=== PATIENT | female | born 1985 | race Two or more races ===

== ENCOUNTER → 2016-12-25 | Outpatient (CLI) | payer SELFPAY | LOC: MW.CHOBGYN 14:53 | PROVIDERS: ATTEND Advanced Practice Midwife | DX: Z32.00 Encounter for pregnancy test, result unknown (principal) | CPT/HCPCS: 81025 ==

== ENCOUNTER 2017-08-08 04:31 | Inpatient (IN) | payer BC ==
[2017-08-08] MEDS ORDERED: Sodium Chloride 0.9% 2.5 ML Syringe FLUSH PRN (05:39)
[2017-08-08] MEDS ORDERED: ceFAZolin 2 GM in Premix Bag 1 BAG IV ONE (05:39)
[2017-08-08] MEDS ORDERED: Sodium Chloride 0.9% 10 ML Syringe FLUSH PRN (05:39)
[2017-08-08] MEDS ORDERED: Oxytocin/0.9 % Sodium Chloride 30 UNIT/500 ML BAG IV SCH (05:45)
[2017-08-08] MEDS ORDERED: Citric Acid/Sodium Citrate Solution 30 ML Cup PO SCH (05:45)
[2017-08-08] MEDS: Lactated Ringers 1,000 ML IV SCH ×3 (06:01→07:00)
--- NOTE | 2017-08-08 06:44 | PCM.LDHP ---
L&D History of Present Illness - General Date of Service: 08/08/17 Admit Problem/Dx: Patient Status Order with Admit Dx/Problem 08/08/17 05:44 Admission Status [Patient Status] [ADT] Routine Admission Diagnosis/Problem Admission Diagnosis/Problem Source of Information: Patient History Limitations: Reports: No Limitations - History of Present Illness Improves with: Reports: None Worsens with: Reports: None Associated Symptoms: Reports: N - Related Data Allergies/Adverse Reactions: Allergies Allergy/AdvReac Type Severity Reaction Status Date / Time No Known Allergies Allergy Verified 08/08/17 05:36 Past Medical History Genitourinary History: Reports: None 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: - Infectious Disease History Infectious Disease History: Reports: Chicken Pox - Past Surgical History Female Surgical History: Reports: Section Social & Family History - Family History Family Medical History: Noncontributory - Tobacco Use Smoking Status *Q: Never Smoker Second Hand Smoke Exposure: No - Caffeine Use Caffeine Use: Reports: None - Recreational Drug Use Recreational Drug Use: No H&P Review of Systems - Review of Systems: Review Of Systems: See Below General: Reports: No Symptoms HEENT: Reports: No Symptoms Pulmonary: Reports: No Symptoms Cardiovascular: Reports: No Symptoms Gastrointestinal: Reports: No Symptoms Genitourinary: Reports: No Symptoms Musculoskeletal: Reports: No Symptoms Skin: Reports: No Symptoms Psychiatric: Reports: No Symptoms Neurological: Reports: No Symptoms Hematologic/Lymphatic: Reports: No Symptoms Immunologic: Reports: No Symptoms L&D Exam - Exam Exam: See Below - Vital Signs Weight: 81.647 kg - OB Specific Contraction Intensity: Mild Movement: Active Heart Tones: Present Presentation: Transverse - Exam General: Alert, Oriented HEENT: PERRLA, Conjunctiva Clear, EACs Clear, EOMI, Hearing Intact, Mucosa Moist & [place], Nares Patent, Normal Nasal Septum, Posterior Pharynx Clear, TMs Clear Neck: Supple, Trachea Midline Lungs: Clear to Auscultation, Normal Respiratory Effort Cardiovascular: Regular Rate, Regular Rhythm GI/Abdominal Exam: Normal Bowel Sounds, Soft, Non-Tender, No Organomegaly, No Distention, No Abnormal Bruit, No Mass, Pelvis Stable Rectal Exam: Normal Exam, Normal Rectal Tone Genitourinary: Normal external exam, Normal bimanual exam, Normal speculum exam Back Exam: Normal Inspection, Full Range of Motion Extremities: Normal Inspection, Normal Range of Motion, Non-Tender, No Pedal Edema, Normal Capillary Refill Skin: Warm, Dry, Intact Neurological: Cranial Nerves Intact, Reflexes Equal Bilateral Psychiatric: Alert, Normal Affect, Normal Mood - Patient Data Lab Results Last 24 hrs: Laboratory Results - last 24 hr 08/08/17 Range/Units 06:01 WBC 8.57 (4.0-11.0) K/uL RBC 4.21 L (4.30-5.90) M/uL Hgb 14.0 (12.0-16.0) g/dL Hct 40.1 (36.0-46.0) % MCV 95.2 (80.0-98.0) fL MCH 33.3 H (27.0-32.0) pg MCHC 34.9 (31.0-37.0) g/dL RDW Std Deviation 46.2 (28.0-62.0) fl RDW Coeff of Laura 14 (11.0-15.0) % Plt Count 224 (150-400) K/uL MPV 9.70 (7.40-12.00) fL Nucleated RBC % 0.0 /100WBC Nucleated RBCs # 0 K/uL Result Diagrams: 08/08/17 06:01 Problem List Initiated/Reviewed/Updated: Yes Orders Last 24hrs: Active Orders 24 hr Category Date Time Status Admission Status [Patient Status] [ADT] Routine ADT 08/08/17 05:44 Active Non Stress Test [RC] PER UNIT ROUTINE Care 08/08/17 05:39 Active Notify Provider Vital Signs [RC] PRN Care 08/08/17 05:40 Active Procedure Site Prep Instruct [RC] ASDIRECTED Care 08/08/17 05:39 Active Up ad Ramona [RC] ASDIRECTED Care 08/08/17 05:39 Active Verify Patient Consent Obtain [RC] ASDIRECTED Care 08/08/17 05:39 Active Vital Signs [RC] PER UNIT ROUTINE Care 08/08/17 05:39 Active TYPE AND SCREEN [BBK] Routine Lab 08/08/17 06:01 Received Citric Acid/Sodium Citrate [Bicitra Solution] Med 08/08/17 05:45 Active 30 ml PO .ONCE Lactated Ringers [Ringers, Lactated] 1,000 ml Med 08/08/17 05:45 Active IV .BOLUS Oxytocin/0.9 % Sodium Chloride [Oxytocin 30 Unit/500 ML Med 08/08/17 05:45 Active -NS] 30 unit in 500 ml IV TITRATE Sodium Chloride 0.9% [Saline Flush] Med 08/08/17 05:39 Active 10 ml FLUSH ASDIRECTED PRN Sodium Chloride 0.9% [Saline Flush] Med 08/08/17 05:39 Active 2.5 ml FLUSH ASDIRECTED PRN Peripheral IV Insertion Adult [OM.PC] Routine Oth 08/08/17 05:39 Ordered Schedule Procedure [COMM] Per Unit Routine Oth 08/08/17 05:39 Ordered Resuscitation Status Routine Resus Stat 08/08/17 05:39 Ordered Medication Orders Citric Acid/Sodium Citrate (Bicitra Solution) 30 ml PO .ONCE TERESITA Lactated Ringer's (Ringers, Lactated) 1,000 mls @ 500 mls/hr IV .BOLUS TERESITA Last Admin: 08/08/17 06:01 Dose: 999 mls/hr Oxytocin/Sodium Chloride (Oxytocin 30 Unit/500 Ml-Ns) 30 unit in 500 mls @ 250 mls/hr IV TITRATE TERESITA Sodium Chloride (Saline Flush) 10 ml FLUSH ASDIRECTED PRN PRN Reason: Keep Vein Open Sodium Chloride (Saline Flush) 2.5 ml FLUSH ASDIRECTED PRN PRN Reason: Keep Vein Open Assessment/Plan Comment:: IUP 38+3 previous C/section in active labor with SROM confirmed. Olane to reprat C.section.
[2017-08-08] MEDS ORDERED: Oxytocin 10 Units/1 ML SDV ONE (06:59)
[2017-08-08] MEDS ORDERED: Morphine PF 10 MG/10 ML SDV ONE (07:00)
--- NOTE | 2017-08-08 07:02 | PCM.PREANE ---
Preanesthetic Assessment - Anesthesia/Transfusion/Family Hx Anesthesia History: Prior Anesthesia Without Reaction Transfusion History: No Prior Transfusion(s) - Review of Systems General: No Symptoms Pulmonary: No Symptoms Cardiovascular: No Symptoms Gastrointestinal: No Symptoms Neurological: No Symptoms Other: Reports: None - Physical Assessment Height: 5 ft 3 in Weight: 81.647 kg ASA Class: 2E Mental Status: Alert & Oriented x3 Airway Class: Mallampati = 2 Dentition: Reports: Normal Dentition Thyro-Mental Finger Breadths: 3 Mouth Opening Finger Breadths: 3 ROM/Head Extension: Full Lungs: Clear to Auscultation, Normal Respiratory Effort Cardiovascular: Regular Rate, Regular Rhythm - Lab Values: Laboratory Last Values WBC 8.57 K/uL (4.0-11.0) 08/08/17 06:01 RBC 4.21 M/uL (4.30-5.90) L 08/08/17 06:01 Hgb 14.0 g/dL (12.0-16.0) 08/08/17 06:01 Hct 40.1 % (36.0-46.0) 08/08/17 06:01 MCV 95.2 fL (80.0-98.0) 08/08/17 06:01 MCH 33.3 pg (27.0-32.0) H 08/08/17 06:01 MCHC 34.9 g/dL (31.0-37.0) 08/08/17 06:01 RDW Std Deviation 46.2 fl (28.0-62.0) 08/08/17 06:01 RDW Coeff of Laura 14 % (11.0-15.0) 08/08/17 06:01 Plt Count 224 K/uL (150-400) 08/08/17 06:01 MPV 9.70 fL (7.40-12.00) 08/08/17 06:01 Nucleated RBC % 0.0 /100WBC 08/08/17 06:01 Nucleated RBCs # 0 K/uL 08/08/17 06:01 Blood Type O POSITIVE 08/08/17 06:01 Antibody Screen NEGATIVE 08/08/17 06:01 - Allergies Allergies/Adverse Reactions: Allergies Allergy/AdvReac Type Severity Reaction Status Date / Time No Known Allergies Allergy Verified 08/08/17 05:36 - Acknowledgements Anesthesia Type Planned: General Anesthesia, Spinal (with Duramorph) Pt an Appropriate Candidate for the Planned Anesthesia: Yes Alternatives and Risks of Anesthesia Discussed w Pt/Guardian: Yes Pt/Guardian Understands and Agrees with Anesthesia Plan: Yes PreAnesthesia Questionnaire HEENT History: Reports: None Cardiovascular History: Reports: None Respiratory History: Reports: None Gastrointestinal History: Reports: GERD Genitourinary History: Reports: None 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 Para: 1 LMP (Approximate): Musculoskeletal History: Reports: None Neurological History: Reports: None Psychiatric History: Reports: None Endocrine/Metabolic History: Reports: Obesity/BMI 30+ Hematologic History: Reports: None Immunologic History: Reports: None Oncologic (Cancer) History: Reports: None Dermatologic History: Reports: None - Infectious Disease History Infectious Disease History: Reports: Chicken Pox - Past Surgical History Female Surgical History: Reports: Section - SUBSTANCE USE Smoking Status *Q: Never Smoker Second Hand Smoke Exposure: No Recreational Drug Use History: No - CURRENT (IN HOUSE) MEDS Current Meds: Current Medications Citric Acid/Sodium Citrate (Bicitra Solution) 30 ml PO .ONCE TERESITA Lactated Ringer's (Ringers, Lactated) 1,000 mls @ 500 mls/hr IV .BOLUS TERESITA Last Admin: 08/08/17 06:30 Dose: 999 mls/hr Oxytocin/Sodium Chloride (Oxytocin 30 Unit/500 Ml-Ns) 30 unit in 500 mls @ 250 mls/hr IV TITRATE TERESITA Sodium Chloride (Saline Flush) 10 ml FLUSH ASDIRECTED PRN PRN Reason: Keep Vein Open Sodium Chloride (Saline Flush) 2.5 ml FLUSH ASDIRECTED PRN PRN Reason: Keep Vein Open Discontinued Medications Cefazolin Sodium/Dextrose 2 gm (/ Premix) 50 mls @ 100 mls/hr IV ONETIME ONE Stop: 08/08/17 06:08
[2017-08-08] MEDS ORDERED: Oxytocin/0.9 % Sodium Chloride 30 UNIT/500 ML BAG ONE (07:11)
[2017-08-08] MEDS ORDERED: Octyl 2-Cyanoacrylate 1 Tube ONE (07:34)
[2017-08-08] MEDS ORDERED: Ondansetron 4 MG/2 ML SDV ONE (07:50)
[2017-08-08] MEDS ORDERED: ePHEDrine 50 MG/ML SDV ONE (07:50)
[2017-08-08] MEDS ORDERED: Ondansetron 4 MG/2 ML SDV IV PRN (07:54)
[2017-08-08] MEDS ORDERED: Lanolin 100% Cream 7 GM Tube TOP PRN (07:54)
[2017-08-08] MEDS ORDERED: Bisacodyl 10 MG Supp RECTAL PRN (07:54)
[2017-08-08] MEDS ORDERED: diphenhydrAMINE 50 MG/ML SDV IVPUSH PRN ×2 (07:54→17:16)
[2017-08-08] MEDS ORDERED: Acetaminophen/oxyCODONE 325-5 MG Tab PO PRN ×2 (07:54)
--- NOTE | 2017-08-08 07:58 | PCM.OPNOTE ---
- General Post-Op/Procedure Note Date of Surgery/Procedure: 08/08/17 Operative Procedure(s): Repeat C/section Pre Op Diagnosis: IUP 38+4 Previous C/section. SROM Post-Op Diagnosis: Same Anesthesia Technique: Spinal Primary Surgeon: Ish Monique Shop Lead: Jazmin Vickers EBL in mLs: 600 Complications: None Condition: Good
[2017-08-08] MEDS ORDERED: Lactated Ringers 1,000 ML IV SCH (08:00)
[2017-08-08] MEDS: Ketorolac 30 MG/ML SDV IVPUSH SCH ×3 (08:30→20:32)
--- NOTE | 2017-08-08 08:40 | PCM.POSTAN ---
POST ANESTHESIA ASSESSMENT - MENTAL STATUS Mental Status: Alert, Oriented - RESPIRATORY Respiratory Status: Respiratory Rate WNL, Airway Patent, O2 Saturation Stable - CARDIOVASCULAR CV Status: Pulse Rate WNL, Blood Pressure Stable - GASTROINTESTINAL GI Status: No Symptoms - PAIN Pain Score: 0 - POST OP HYDRATION Hydration Status: Adequate & Stable
--- NOTE | 2017-08-08 09:37 | OR ---
SURGEON: Ish Monique MD DATE OF PROCEDURE: PREOPERATIVE DIAGNOSES: Intrauterine 38 plus 4, previous section, early labor, spontaneous rupture of the membrane. POSTOPERATIVE DIAGNOSES: Intrauterine 38 plus 4, previous section, early labor, spontaneous rupture of the membrane. OPERATION PERFORMED: Repeat low transverse section. 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 ANESTHESIA: Spinal by Nicky Martinez. ESTIMATED BLOOD LOSS: 600 mL. COMPLICATIONS: None. FINDINGS: Female fetus, score reported to be 8 and 9. The weight is not available. Normal uterus, tubes, and ovaries. INDICATIONS: The patient is 32-year-old. She is followed in our clinic. She had a previous section. She is scheduled for elective repeat section next week. She is 38 plus 4. She presented to Labor and Delivery early this morning, in early labor with spontaneous rupture of the membrane. Decision made to repeat her section today. PROCEDURE IN DETAIL: The patient was brought to the OR, properly identified, and after adequate level of spinal anesthesia, a time-out was taken and a Coon catheter in the bladder. The patient was prepped and draped in sterile fashion as usual. Low-transverse Pfannenstiel skin incision was done. Lior's fascia and rectus fascia were opened in direction of the incision. The 2 recti muscles were . The peritoneal cavity was entered. Bladder flap was raised in the usual manner pushing the bladder away from the lower uterine segment. Low-transverse uterine incision extended manually and fetus was in a vertex position and delivered without any problem, cried immediately. score reported to be 8 and 9 and weight is not available. The placenta delivered spontaneous, complete, and intact, and repair of the lower uterine segment was done with 2-0 Vicryl continuous interlocking in 2 layers. Reperitonealization done with 3-0 Vicryl continuous and then the peritoneal cavity evacuated completely from all blood and blood clot and closed with 3-0 Vicryl continuous. The rectus fascia was closed with #1 PDS double strand and the Lior's fascia with 3-0 Vicryl continuous, and the skin closed with 3-0 Vicryl on a Alli needle in a subcuticular fashion. Instrument and sponge count were correct. The patient tolerated the procedure well, went to recovery room in stable general condition. JEYSON / ANY /[id number]
[2017-08-08] MEDS ORDERED: Naloxone 0.4 MG/ML Syringe IVPUSH PRN (17:16)
[2017-08-08] MEDS ORDERED: Nalbuphine 10 MG/1 ML Vial IVPUSH PRN (17:16)
[2017-08-08] MEDS ORDERED: fentaNYL 100 MCG/2 ML SDV IVPUSH PRN (17:18)
[2017-08-08] MEDS: Docusate Sodium 100 MG Cap PO SCH (23:17)
[2017-08-09] MEDS: Ketorolac 30 MG/ML SDV IVPUSH SCH ×2 (02:44→09:07)
--- NOTE | 2017-08-09 07:57 | PCM.PNPP ---
- General Info Date of Service: 08/09/17 Admission Dx/Problem (Free Text): Patient Status Order with Admit Dx/Problem 08/08/17 05:44 Admission Status [Patient Status] [ADT] Routine Admission Diagnosis/Problem Admission Diagnosis/Problem Functional Status: Reports: Pain Controlled, Tolerating Diet, Ambulating, Urinating - Review of Systems General: Reports: No Symptoms HEENT: Reports: No Symptoms Pulmonary: Reports: No Symptoms Cardiovascular: Reports: No Symptoms Gastrointestinal: Reports: No Symptoms Genitourinary: Reports: No Symptoms Musculoskeletal: Reports: No Symptoms Skin: Reports: No Symptoms Neurological: Reports: No Symptoms Psychiatric: Reports: No Symptoms - Patient Data Vital Signs - Most Recent: Last Vital Signs Temp 36.6 C 08/09/17 04:00 Pulse 67 08/09/17 04:00 Resp 17 08/09/17 07:00 BP 96/58 L 08/09/17 04:00 Pulse Ox 95 08/09/17 07:00 Weight - Most Recent: 81.647 kg I&O - Last 24 Hours: Intake & Output 08/08/17 08/09/17 08/09/17 22:59 06:59 14:59 Intake Total 3350 Output Total 3200 Balance 150 Lab Results - Last 24 Hours: Laboratory Results - last 24 hr 08/09/17 Range/Units 05:46 Hgb 11.7 L (12.0-16.0) g/dL Hct 34.6 L (36.0-46.0) % Med Orders - Current: Current Medications Bisacodyl (Dulcolax) 10 mg RECTAL .ONCE PRN PRN Reason: Constipation Citric Acid/Sodium Citrate (Bicitra Solution) 30 ml PO .ONCE TERESITA Diphenhydramine HCl (Benadryl) 25 mg IVPUSH Q6H PRN PRN Reason: Itching or Nausea Diphenhydramine HCl (Benadryl) 25 mg IVPUSH Q4H PRN PRN Reason: Itching Stop: 08/09/17 17:17 Docusate Sodium (Colace) 100 mg PO BID TERESITA Last Admin: 08/08/17 23:17 Dose: Not Given Emollient Ointment (Lansinoh Hpa) 0 gm TOP ASDIRECTED PRN PRN Reason: Sore Nipples Lactated Ringer's (Ringers, Lactated) 1,000 mls @ 500 mls/hr IV .BOLUS [facility] Last Admin: 08/08/17 07:00 Dose: 999 mls/hr Oxytocin/Sodium Chloride (Oxytocin 30 Unit/500 Ml-Ns) 30 unit in 500 mls @ 250 mls/hr IV TITRATE [facility] Lactated Ringer's (Ringers, Lactated) 1,000 mls @ 125 mls/hr IV ASDIRECTED [facility] Last Admin: 08/08/17 14:54 Dose: 125 mls/hr Ibuprofen (Motrin) 800 mg PO Q8H PRN PRN Reason: mild pain or fever Ketorolac Tromethamine (Toradol) 30 mg IVPUSH Q6H [facility] Stop: 08/09/17 08:01 Last Admin: 08/09/17 02:44 Dose: 30 mg Nalbuphine HCl (Nubain) 5 mg IVPUSH Q3H PRN PRN Reason: Pruritis Stop: 08/09/17 17:17 Naloxone HCl (Narcan) 0.1 mg IVPUSH ONETIME PRN PRN Reason: Respiratory Depression Stop: 08/09/17 17:17 Ondansetron HCl (Zofran) 4 mg IV Q4H PRN PRN Reason: Nausea/Vomiting Oxycodone/Acetaminophen (Percocet 325-5 Mg) 1 tab PO Q4H PRN PRN Reason: Pain (moderate 4-6) Oxycodone/Acetaminophen (Percocet 325-5 Mg) 2 tab PO Q4H PRN PRN Reason: Pain (moderate 4-6) Sodium Chloride (Saline Flush) 10 ml FLUSH ASDIRECTED PRN PRN Reason: Keep Vein Open Sodium Chloride (Saline Flush) 2.5 ml FLUSH ASDIRECTED PRN PRN Reason: Keep Vein Open Discontinued Medications Ephedrine Sulfate (Ephedrine Sulfate) Confirm Administered Dose 50 mg .ROUTE .STK-MED ONE Stop: 08/08/17 07:51 Fentanyl (Sublimaze) 50 mcg IVPUSH Q45M PRN PRN Reason: Pain (severe 7-10) Stop: 08/09/17 07:30 Cefazolin Sodium/Dextrose 2 gm (/ Premix) 50 mls @ 100 mls/hr IV ONETIME ONE Stop: 08/08/17 06:08 Oxytocin/Sodium Chloride (Oxytocin 30 Unit/500 Ml-Ns) Confirm Administered Dose 30 unit in 500 mls @ as directed .ROUTE .STK-MED ONE Stop: 08/08/17 07:12 Morphine Sulfate (Duramorph Pf) Confirm Administered Dose 10 mg .ROUTE .STK-MED ONE Stop: 08/08/17 07:01 Octyl Cyanoacrylate (Dermabond Advance) Confirm Administered Dose 1 applic .ROUTE .STK-MED ONE Stop: 08/08/17 07:35 Ondansetron HCl (Zofran) Confirm Administered Dose 4 mg .ROUTE .STK-MED ONE Stop: 08/08/17 07:51 Oxytocin (Pitocin) Confirm Administered Dose 40 unit .ROUTE .STK-MED ONE Stop: 08/08/17 07:00 - Interaction Infant Disposition, : Niland at Bedside Interaction: Holding Infant Feeding: Breastfed Infant; Nursed Well Support Person: - Recovery Exam Fundal Tone: Firm Fundal Level: 1 Fingerbreadths Below Umbilicus Fundal Placement: Midline Lochia Amount: Scant Lochia Color: Rubra/Red Perineum Description: Intact, Minimal Bruising/Swelling Episiotomy/Laceration: None Bladder Status: Indwelling Catheter in Place Urinary Elimination: Indwelling Catheter - Exam General: Alert, Oriented, Cooperative, No Acute Distress Lungs: Clear to Auscultation, Normal Respiratory Effort Cardiovascular: Regular Rate, Regular Rhythm, No Murmurs GI/Abdominal Exam: Soft, Non-Tender Extremities: Normal Range of Motion, Non-Tender, No Pedal Edema, Normal Capillary Refill Skin: Warm, Dry, Intact Wound/Incisions: Healing Well, Dressing Dry and Intact, No Drainage Neurological: No New Focal Deficit, Normal Gait, Normal Speech, Normal Tone Psy/Mental Status: Alert, Normal Affect, Normal Mood - Problem List & Annotations (1) Status post delivery SNOMED Code(s): 075176708 Code(s): Z98.891 - HISTORY OF UTERINE SCAR FROM PREVIOUS SURGERY Status: Acute Priority: High Current Visit: Yes - Problem List Review Problem List Initiated/Reviewed/Updated: Yes - Plan Plan:: IUP 38+3 previous C/section in active labor with SROM confirmed. Olane to reprat C.section.
[2017-08-09] MEDS: Docusate Sodium 100 MG Cap PO SCH ×4 (09:07→21:03)
--- NOTE | 2017-08-09 09:37 | PCM.SURGPN ---
- General Info Date of Service: 08/09/17 POD#: 1 Functional Status: Reports: Pain Controlled - Review of Systems General: Reports: No Symptoms HEENT: Reports: No Symptoms Pulmonary: Reports: No Symptoms Cardiovascular: Reports: No Symptoms Gastrointestinal: Reports: No Symptoms Genitourinary: Reports: No Symptoms Musculoskeletal: Reports: No Symptoms Skin: Reports: No Symptoms Neurological: Reports: No Symptoms Psychiatric: Reports: No Symptoms - Patient Data Vitals - Most Recent: Last Vital Signs Temp 36.4 C 08/09/17 08:00 Pulse 86 08/09/17 08:00 Resp 16 08/09/17 08:00 BP 94/53 L 08/09/17 08:00 Pulse Ox 98 08/09/17 08:00 Weight - Most Recent: 81.647 kg I&O - Last 24 Hours: Intake & Output 08/08/17 08/09/17 08/09/17 22:59 06:59 14:59 Intake Total 3350 Output Total 3200 Balance 150 Lab Results Last 24 Hrs: Laboratory Results - last 24 hr 08/09/17 Range/Units 05:46 Hgb 11.7 L (12.0-16.0) g/dL Hct 34.6 L (36.0-46.0) % Med Orders - Current: Current Medications Bisacodyl (Dulcolax) 10 mg RECTAL .ONCE PRN PRN Reason: Constipation Citric Acid/Sodium Citrate (Bicitra Solution) 30 ml PO .ONCE [facility]ES[facility] Diphenhydramine HCl (Benadryl) 25 mg IVPUSH Q6H PRN PRN Reason: Itching or Nausea Diphenhydramine HCl (Benadryl) 25 mg IVPUSH Q4H PRN PRN Reason: Itching Stop: 08/09/17 17:17 Docusate Sodium (Colace) 100 mg PO BID [facility] Last Admin: 08/09/17 09:12 Dose: Not Given Emollient Ointment (Lansinoh Hpa) 0 gm TOP ASDIRECTED PRN PRN Reason: Sore Nipples Lactated Ringer's (Ringers, Lactated) 1,000 mls @ 500 mls/hr IV .BOLUS [facility] Last Admin: 08/08/17 07:00 Dose: 999 mls/hr Oxytocin/Sodium Chloride (Oxytocin 30 Unit/500 Ml-Ns) 30 unit in 500 mls @ 250 mls/hr IV TITRATE [facility] Lactated Ringer's (Ringers, Lactated) 1,000 mls @ 125 mls/hr IV ASDIRECTED [facility] Last Admin: 08/08/17 14:54 Dose: 125 mls/hr Ibuprofen (Motrin) 800 mg PO Q8H PRN PRN Reason: mild pain or fever Nalbuphine HCl (Nubain) 5 mg IVPUSH Q3H PRN PRN Reason: Pruritis Stop: 08/09/17 17:17 Naloxone HCl (Narcan) 0.1 mg IVPUSH ONETIME PRN PRN Reason: Respiratory Depression Stop: 08/09/17 17:17 Ondansetron HCl (Zofran) 4 mg IV Q4H PRN PRN Reason: Nausea/Vomiting Oxycodone/Acetaminophen (Percocet 325-5 Mg) 1 tab PO Q4H PRN PRN Reason: Pain (moderate 4-6) Oxycodone/Acetaminophen (Percocet 325-5 Mg) 2 tab PO Q4H PRN PRN Reason: Pain (moderate 4-6) Sodium Chloride (Saline Flush) 10 ml FLUSH ASDIRECTED PRN PRN Reason: Keep Vein Open Sodium Chloride (Saline Flush) 2.5 ml FLUSH ASDIRECTED PRN PRN Reason: Keep Vein Open Discontinued Medications Ephedrine Sulfate (Ephedrine Sulfate) Confirm Administered Dose 50 mg .ROUTE .STK-MED ONE Stop: 08/08/17 07:51 Fentanyl (Sublimaze) 50 mcg IVPUSH Q45M PRN PRN Reason: Pain (severe 7-10) Stop: 08/09/17 07:30 Cefazolin Sodium/Dextrose 2 gm (/ Premix) 50 mls @ 100 mls/hr IV ONETIME ONE Stop: 08/08/17 06:08 Oxytocin/Sodium Chloride (Oxytocin 30 Unit/500 Ml-Ns) Confirm Administered Dose 30 unit in 500 mls @ as directed .ROUTE .STK-MED ONE Stop: 08/08/17 07:12 Ketorolac Tromethamine (Toradol) 30 mg IVPUSH Q6H [facility] Stop: 08/09/17 08:01 Last Admin: 08/09/17 09:07 Dose: 30 mg Morphine Sulfate (Duramorph Pf) Confirm Administered Dose 10 mg .ROUTE .STK-MED ONE Stop: 08/08/17 07:01 Octyl Cyanoacrylate (Dermabond Advance) Confirm Administered Dose 1 applic .ROUTE .STK-MED ONE Stop: 08/08/17 07:35 Ondansetron HCl (Zofran) Confirm Administered Dose 4 mg .ROUTE .STK-MED ONE Stop: 08/08/17 07:51 Oxytocin (Pitocin) Confirm Administered Dose 40 unit .ROUTE .STK-MED ONE Stop: 08/08/17 07:00 - Exam Wound/Incisions: Healing Well General: Alert, Oriented HEENT: Pupils Equal Neck: Supple Lungs: Clear to Auscultation, Normal Respiratory Effort Cardiovascular: Regular Rate, Regular Rhythm GI/Abdominal Exam: Normal Bowel Sounds, Soft, Non-Tender, No Organomegaly, No Distention, No Abnormal Bruit, No Mass, Pelvis Stable Extremities: Normal Inspection, Normal Range of Motion, Non-Tender, No Pedal Edema, Normal Capillary Refill Skin: Warm, Dry, Intact Neurological: No New Focal Deficit Psy/Mental Status: Alert, Normal Affect, Normal Mood - Problem List Review Problem List Initiated/Reviewed/Updated: Yes - My Orders Last 24 Hours: Active Orders 24 hr Category Date Time Status Bradycardia-Neuroaxis [employer] [RC] ROUTINE Care 08/08/17 17:17 Active Hypertension-Neuroaxis [employer] [RC] ROUTINE Care 08/08/17 17:17 Active Hypotension-Neuroaxis [employer] [RC] ROUTINE Care 08/08/17 17:17 Active Oxygen Therapy [RC] PER UNIT ROUTINE Care 08/08/17 17:17 Active Regular Diet [DIET] Diet 08/08/17 Lunch Active Docusate Sodium [Colace] Med 08/08/17 09:00 Active 100 mg PO BID Nalbuphine [Nubain] Med 08/08/17 17:16 Active 5 mg IVPUSH Q3H PRN Naloxone [Narcan] Med 08/08/17 17:16 Active 0.1 mg IVPUSH ONETIME PRN diphenhydrAMINE [Benadryl] Med 08/08/17 17:16 Active 25 mg IVPUSH Q4H PRN AN Neuroaxis Duramorph Precaution Reflex [OM.PC] PER Oth 08/09/17 07:30 Ordered UNIT ROUTINE Medication Orders Bisacodyl (Dulcolax) 10 mg RECTAL .ONCE PRN PRN Reason: Constipation Citric Acid/Sodium Citrate (Bicitra Solution) 30 ml PO .ONCE [facility] Diphenhydramine HCl (Benadryl) 25 mg IVPUSH Q6H PRN PRN Reason: Itching or Nausea Diphenhydramine HCl (Benadryl) 25 mg IVPUSH Q4H PRN PRN Reason: Itching Stop: 08/09/17 17:17 Docusate Sodium (Colace) 100 mg PO BID [facility] Last Admin: 08/09/17 09:12 Dose: Not Given Admin: 08/09/17 09:07 Dose: 100 mg Admin: 08/08/17 23:17 Dose: Not Given Emollient Ointment (Lansinoh Hpa) 0 gm TOP ASDIRECTED PRN PRN Reason: Sore Nipples Lactated Ringer's (Ringers, Lactated) 1,000 mls @ 500 mls/hr IV .BOLUS [facility] Last Admin: 08/08/17 07:00 Dose: 999 mls/hr Infusion: 08/08/17 07:00 Dose: 999 mls/hr Admin: 08/08/17 06:30 Dose: 999 mls/hr Infusion: 08/08/17 06:30 Dose: 999 mls/hr Admin: 08/08/17 06:01 Dose: 999 mls/hr Oxytocin/Sodium Chloride (Oxytocin 30 Unit/500 Ml-Ns) 30 unit in 500 mls @ 250 mls/hr IV TITRATE [facility] Lactated Ringer's (Ringers, Lactated) 1,000 mls @ 125 mls/hr IV ASDIRECTED [facility] Last Admin: 08/08/17 14:54 Dose: 125 mls/hr Ibuprofen (Motrin) 800 mg PO Q8H PRN PRN Reason: mild pain or fever Nalbuphine HCl (Nubain) 5 mg IVPUSH Q3H PRN PRN Reason: Pruritis Stop: 08/09/17 17:17 Naloxone HCl (Narcan) 0.1 mg IVPUSH ONETIME PRN PRN Reason: Respiratory Depression Stop: 08/09/17 17:17 Ondansetron HCl (Zofran) 4 mg IV Q4H PRN PRN Reason: Nausea/Vomiting Oxycodone/Acetaminophen (Percocet 325-5 Mg) 1 tab PO Q4H PRN PRN Reason: Pain (moderate 4-6) Oxycodone/Acetaminophen (Percocet 325-5 Mg) 2 tab PO Q4H PRN PRN Reason: Pain (moderate 4-6) Sodium Chloride (Saline Flush) 10 ml FLUSH ASDIRECTED PRN PRN Reason: Keep Vein Open Sodium Chloride (Saline Flush) 2.5 ml FLUSH ASDIRECTED PRN PRN Reason: Keep Vein Open - Assessment Assessment (Free Text/Narrative):: Status post section postoperative day #1 the patient have no complaint or symptom and incision is clean dry she is ambulatory on regular diet and voiding without any problem the patient would be discharged home in a.m.
[2017-08-09] MEDS: Ibuprofen 800 MG Tab PO PRN (21:03)
--- NOTE | 2017-08-10 08:15 | PCM.DCSUM1 ---
Discharge Summary - Hospital Course Free Text/Narrative:: Discharge home with . Follow up 10 days for incision check and 6 weeks for post visit. - Discharge Data Discharge Date: 08/10/17 Discharge Disposition: Home, Self-Care 01 Condition: Good - Discharge Diagnosis/Problem(s) (1) Status post delivery SNOMED Code(s): 097440934 ICD Code: Z98.891 - HISTORY OF UTERINE SCAR FROM PREVIOUS SURGERY Status: Acute Priority: High Current Visit: Yes - Patient Summary/Data Operative Procedure(s) Performed: Repeat C/section - Patient Instructions Diet: Usual Diet as Tolerated Activity: As Tolerated, No Strenuous Activities, Rest and Relax Today Driving: May Drive Today Showering/Bathing: December Shower Wound/Incision Care: Keep Operative Site/Wound Site Clean and Dry Notify Provider of: Fever, Increased Pain, Swelling and Redness, Drainage, Nausea and/or Vomiting Other/Special Instructions: Discharge home with infant. Follow up 10 days for incision check and 6 weeks for post visit. - Discharge Plan Referrals: [facility] [Outside] Jazmin Vickers CNM [Mid-] - (1 week- August 21 @ 8:30am w/ Dr. Monique 6 week- September 19 @ 10:30am w/ Jazmin Vickers) - General Info Date of Service: 08/10/17 Admission Dx/Problem (Free Text: Patient Status Order with Admit Dx/Problem 08/08/17 05:44 Admission Status [Patient Status] [ADT] Routine Admission Diagnosis/Problem Admission Diagnosis/Problem Functional Status: Reports: Pain Controlled, Tolerating Diet, Ambulating, Urinating - Review of Systems General: Reports: No Symptoms HEENT: Reports: No Symptoms Pulmonary: Reports: No Symptoms Cardiovascular: Reports: No Symptoms Gastrointestinal: Reports: No Symptoms Genitourinary: Reports: No Symptoms Musculoskeletal: Reports: No Symptoms Skin: Reports: No Symptoms Neurological: Reports: No Symptoms Psychiatric: Reports: No Symptoms - Patient Data Vitals - Most Recent: Last Vital Signs Temp 36.7 C 08/10/17 05:00 Pulse 80 08/10/17 05:00 Resp 18 08/10/17 05:00 BP 97/54 L 08/10/17 05:00 Pulse Ox 96 08/10/17 05:00 Weight - Most Recent: 81.647 kg Med Orders - Current: Current Medications Bisacodyl (Dulcolax) 10 mg RECTAL .ONCE PRN PRN Reason: Constipation Citric Acid/Sodium Citrate (Bicitra Solution) 30 ml PO .ONCE TERESITA Diphenhydramine HCl (Benadryl) 25 mg IVPUSH Q6H PRN PRN Reason: Itching or Nausea Docusate Sodium (Colace) 100 mg PO BID [facility] Last Admin: 08/09/17 21:03 Dose: 100 mg Emollient Ointment (Lansinoh Hpa) 0 gm TOP ASDIRECTED PRN PRN Reason: Sore Nipples Last Admin: 08/09/17 21:02 Dose: 7 gm Lactated Ringer's (Ringers, Lactated) 1,000 mls @ 500 mls/hr IV .BOLUS [facility] Last Admin: 08/08/17 07:00 Dose: 999 mls/hr Oxytocin/Sodium Chloride (Oxytocin 30 Unit/500 Ml-Ns) 30 unit in 500 mls @ 250 mls/hr IV TITRATE [facility] Lactated Ringer's (Ringers, Lactated) 1,000 mls @ 125 mls/hr IV ASDIRECTED [facility] Last Admin: 08/08/17 14:54 Dose: 125 mls/hr Ibuprofen (Motrin) 800 mg PO Q8H PRN PRN Reason: mild pain or fever Last Admin: 08/09/17 21:03 Dose: 800 mg Ondansetron HCl (Zofran) 4 mg IV Q4H PRN PRN Reason: Nausea/Vomiting Oxycodone/Acetaminophen (Percocet 325-5 Mg) 1 tab PO Q4H PRN PRN Reason: Pain (moderate 4-6) Oxycodone/Acetaminophen (Percocet 325-5 Mg) 2 tab PO Q4H PRN PRN Reason: Pain (moderate 4-6) Sodium Chloride (Saline Flush) 10 ml FLUSH ASDIRECTED PRN PRN Reason: Keep Vein Open Sodium Chloride (Saline Flush) 2.5 ml FLUSH ASDIRECTED PRN PRN Reason: Keep Vein Open Discontinued Medications Diphenhydramine HCl (Benadryl) 25 mg IVPUSH Q4H PRN PRN Reason: Itching Stop: 08/09/17 17:17 Ephedrine Sulfate (Ephedrine Sulfate) Confirm Administered Dose 50 mg .ROUTE .STK-MED ONE Stop: 08/08/17 07:51 Fentanyl (Sublimaze) 50 mcg IVPUSH Q45M PRN PRN Reason: Pain (severe 7-10) Stop: 08/09/17 07:30 Cefazolin Sodium/Dextrose 2 gm (/ Premix) 50 mls @ 100 mls/hr IV ONETIME ONE Stop: 08/08/17 06:08 Oxytocin/Sodium Chloride (Oxytocin 30 Unit/500 Ml-Ns) Confirm Administered Dose 30 unit in 500 mls @ as directed .ROUTE .STK-MED ONE Stop: 08/08/17 07:12 Ketorolac Tromethamine (Toradol) 30 mg IVPUSH Q6H [facility] Stop: 08/09/17 08:01 Last Admin: 08/09/17 09:07 Dose: 30 mg Morphine Sulfate (Duramorph Pf) Confirm Administered Dose 10 mg .ROUTE .STK-MED ONE Stop: 08/08/17 07:01 Nalbuphine HCl (Nubain) 5 mg IVPUSH Q3H PRN PRN Reason: Pruritis Stop: 08/09/17 17:17 Naloxone HCl (Narcan) 0.1 mg IVPUSH ONETIME PRN PRN Reason: Respiratory Depression Stop: 08/09/17 17:17 Octyl Cyanoacrylate (Dermabond Advance) Confirm Administered Dose 1 applic .ROUTE .STK-MED ONE Stop: 08/08/17 07:35 Ondansetron HCl (Zofran) Confirm Administered Dose 4 mg .ROUTE .STK-MED ONE Stop: 08/08/17 07:51 Oxytocin (Pitocin) Confirm Administered Dose 40 unit .ROUTE .STK-MED ONE Stop: 08/08/17 07:00 - Exam General: Reports: Alert, Oriented, Cooperative Lungs: Reports: Clear to Auscultation, Normal Respiratory Effort Cardiovascular: Reports: Regular Rate, Regular Rhythm, No Murmurs GI/Abdominal Exam: Soft, Non-Tender (Female) Exam: Vaginal Bleeding Rectal (Female) Exam: Deferred Back Exam: Reports: Full Range of Motion Extremities: Normal Range of Motion, Non-Tender, No Pedal Edema, Normal Capillary Refill Skin: Reports: Warm, Dry, Intact Wound/Incisions: Reports: Healing Well, No Drainage Neurological: Reports: No New Focal Deficit, Normal Gait, Normal Speech, Normal Tone Psy/Mental Status: Reports: Alert, Normal Affect, Normal Mood *Q Meaningful Use (DIS) - VTE *Q VTE Criteria *Q: - Stroke *Q Stroke Criteria *Q: - AMI *Q AMI Criteria *Q:
[2017-08-10] MEDS: Docusate Sodium 100 MG Cap PO SCH (08:42)
[2017-08-10] MEDS: Ibuprofen 800 MG Tab PO PRN (08:50)
== END 2017-08-10 11:20 | disposition home or self-care (01) | DRG 540 ==
LOC: MW.OBCHECK 04:31 → MW.OB 04:33 → MW.OBCHECK 05:38 → MW.OB 05:38 → OBSVTOIN 05:39 → MW.OB 08:51
PROVIDERS: ADMIT Obstetrics & Gynecology; ATTEND Obstetrics & Gynecology
PROC: 10D00Z1 Extraction of Products of Conception, Low, Open Approach (ICD-10-PCS; principal; 2017-08-08)
DX: O42.02 Full-term premature rupture of membranes, onset of labor within 24 hours of rupture (principal); O34.211 Maternal care for low transverse scar from previous cesarean delivery; Z3A.38 38 weeks gestation of pregnancy; Z37.0 Single live birth
CPT/HCPCS: 01961; 36415; 59025; 85014; 85018; 85027; 86850; 86900; 86901; A9270-GY; J1885; J2270; J2405; J2590; J7120

== ENCOUNTER 2020-11-03 05:32 | Inpatient (IN) | payer BC ==
[2020-11-03] MEDS: Lactated Ringers 1,000 ML IV SCH ×3 (06:00→08:06)
[2020-11-03] MEDS ORDERED: Sodium Chloride 0.9% 10 ML Syringe FLUSH PRN (06:35)
[2020-11-03] MEDS ORDERED: Sodium Chloride 0.9% 10 ML SDV IV PRN (06:35)
[2020-11-03] MEDS ORDERED: Citric Acid/Sodium Citrate Solution 30 ML Cup PO ONE (06:35)
[2020-11-03] MEDS ORDERED: ceFAZolin 2 GM in Premix Bag 1 BAG IV ONE (06:35)
[2020-11-03] MEDS ORDERED: Sodium Chloride 0.9% 2.5 ML Syringe FLUSH PRN (06:35)
[2020-11-03] MEDS ORDERED: fentaNYL 100 MCG/2 ML SDV IVPUSH PRN (06:43)
[2020-11-03] MEDS ORDERED: Metoclopramide 10 MG/2 ML SDV IVPUSH PRN (06:43)
[2020-11-03] MEDS ORDERED: Naloxone 0.4 MG/ML Syringe IVPUSH PRN (06:43)
[2020-11-03] MEDS ORDERED: Ondansetron 4 MG/2 ML SDV IVPUSH ONE (06:43)
[2020-11-03] MEDS ORDERED: Ondansetron 4 MG/2 ML SDV IVPUSH PRN ×2 (06:43→08:46)
--- NOTE | 2020-11-03 06:43 | PCM.PREANE ---
Preanesthetic Assessment - Anesthesia/Transfusion/Family Hx Anesthesia History: Prior Anesthesia Without Reaction Family History of Anesthesia Reaction: No Transfusion History: No Prior Transfusion(s) - Review of Systems General: No Symptoms Pulmonary: No Symptoms Cardiovascular: No Symptoms Gastrointestinal: No Symptoms Neurological: No Symptoms Other: Reports: None - Physical Assessment NPO Status Date: 11/03/20 NPO Status Time: 00:00 Height: 5 ft 3 in Weight: 195 lb ASA Class: 2 Mental Status: Alert & Oriented x3 Airway Class: Mallampati = 2 Dentition: Reports: Normal Dentition ROM/Head Extension: Full Lungs: Clear to Auscultation Cardiovascular: Regular Rate - Allergies Allergies/Adverse Reactions: Allergies Allergy/AdvReac Type Severity Reaction Status Date / Time No Known Allergies Allergy Verified 10/28/20 10:35 - Blood Blood Available: Yes - Acknowledgements Anesthesia Type Planned: Spinal Pt an Appropriate Candidate for the Planned Anesthesia: Yes Alternatives and Risks of Anesthesia Discussed w Pt/Guardian: Yes Pt/Guardian Understands and Agrees with Anesthesia Plan: Yes PreAnesthesia Questionnaire HEENT History: Reports: None Cardiovascular History: Reports: None Respiratory History: Reports: None Gastrointestinal History: Reports: GERD Genitourinary History: Reports: None [employer] History: Reports: Musculoskeletal History: Reports: None Neurological History: Reports: None Psychiatric History: Reports: None Endocrine/Metabolic History: Reports: Obesity/BMI 30+ Hematologic History: Reports: None Immunologic History: Reports: None Oncologic (Cancer) History: Reports: None Dermatologic History: Reports: None - Infectious Disease History Infectious Disease History: Reports: Chicken Pox - Past Surgical History Head Surgeries/Procedures: Reports: None HEENT Surgical History: Reports: None Cardiovascular Surgical History: Reports: None Respiratory Surgical History: Reports: None GI Surgical History: Reports: None Female Surgical History: Reports: Section Endocrine Surgical History: Reports: None Neurological Surgical History: Reports: None Musculoskeletal Surgical History: Reports: None Oncologic Surgical History: Reports: None Dermatological Surgical History: Reports: None - SUBSTANCE USE Tobacco Use Status *Q: Never Tobacco User - HOME MEDS Home Medications: Home Meds Pnv No.95/Ferrous Fum/Folic AC [ Vitamin Tablet] 1 tab PO DAILY 10/28/20 [History]
[2020-11-03] MEDS ORDERED: Oxytocin/0.9 % Sodium Chloride 30 UNIT/500 ML BAG IV SCH (06:45)
[2020-11-03] MEDS ORDERED: HYDROmorphone 2 MG/ML Syringe IVPUSH PRN (06:49)
[2020-11-03] MEDS ORDERED: Ketorolac 30 MG/ML SDV ONE (06:52)
[2020-11-03] MEDS ORDERED: Ondansetron 4 MG/2 ML SDV ONE ×2 (06:52→07:46)
[2020-11-03] MEDS ORDERED: Oxytocin 10 Units/1 ML SDV ONE (06:52)
[2020-11-03] MEDS ORDERED: Morphine PF 10 MG/10 ML SDV ONE (06:56)
[2020-11-03] MEDS ORDERED: ceFAZolin 1 GM Vial ONE (07:34)
[2020-11-03] MEDS ORDERED: Octyl 2-Cyanoacrylate 1 Tube ONE (07:41)
[2020-11-03] MEDS ORDERED: Dexamethasone 4 MG/ML 5 ML MDV ONE (07:46)
[2020-11-03] MEDS ORDERED: Phenylephrine 1% 10 MG/ML SDV ONE (07:46)
--- NOTE | 2020-11-03 07:58 | PCM.LDHP ---
L&D History of Present Illness - General Date of Service: 11/03/20 Admit Problem/Dx: Patient Status Order with Admit Dx/Problem 11/03/20 06:35 Patient Status [ADT] Routine Admission Diagnosis/Problem Admission Diagnosis/Problem 11/03/20 07:54 Binta is a 35 yo at 38+5 weeks gestation (LUIS(LMP) 11/12/2020 that presents today for repeat low transverse section d/t h/o LTCS x2. Patient has no questions or concerns at this time. RBAs of planned repeat LTCS discussed in office extensively with Dr. Monique, operative and blood consents signed in office 11/01/2020. O pos, Ab screen neg, RI, GBS pos bacteruria. NKDA. Plan for bulmaro-operative antibiotic prophylaxis. Patient reports + FM, denies C/O LOF, pain or contractions, or vaginal bleeding at this time. Verbalizes desire to continue with planned repeat LTCS today. Source of Information: Patient History Limitations: Reports: No Limitations - History of Present Illness Improves with: Reports: None Worsens with: Reports: None Associated Symptoms: Reports: N - Related Data Allergies/Adverse Reactions: Allergies Allergy/AdvReac Type Severity Reaction Status Date / Time No Known Allergies Allergy Verified 10/28/20 10:35 Home Medications: Home Meds Pnv No.95/Ferrous Fum/Folic AC [ Vitamin Tablet] 1 tab PO DAILY 10/28/20 [History] Past Medical History HEENT History: Reports: None Cardiovascular History: Reports: None Respiratory History: Reports: None Gastrointestinal History: Reports: GERD Genitourinary History: Reports: None TAPER AND FLOATER History: Reports: : 3 Para: 2 LMP (Approximate): Musculoskeletal History: Reports: None Neurological History: Reports: None Psychiatric History: Reports: None Endocrine/Metabolic History: Reports: Obesity/BMI 30+ Hematologic History: Reports: None Immunologic History: Reports: None Oncologic (Cancer) History: Reports: None Dermatologic History: Reports: None - Infectious Disease History Infectious Disease History: Reports: Chicken Pox - Past Surgical History Head Surgeries/Procedures: Reports: None HEENT Surgical History: Reports: None Cardiovascular Surgical History: Reports: None Respiratory Surgical History: Reports: None GI Surgical History: Reports: None Female Surgical History: Reports: Section (X2) Endocrine Surgical History: Reports: None Neurological Surgical History: Reports: None Musculoskeletal Surgical History: Reports: None Oncologic Surgical History: Reports: None Dermatological Surgical History: Reports: None Social & Family History - Family History Family Medical History: No Pertinent Family History - Tobacco Use Tobacco Use Status *Q: Never Tobacco User - Caffeine Use Caffeine Use: Reports: None - Recreational Drug Use Drug Use in Last 12 Months: No H&P Review of Systems - Review of Systems: Review Of Systems: Comprehensive ROS is negative, except as noted in HPI. General: Reports: No Symptoms HEENT: Reports: No Symptoms Pulmonary: Reports: No Symptoms Cardiovascular: Reports: No Symptoms Gastrointestinal: Reports: No Symptoms Genitourinary: Reports: No Symptoms Musculoskeletal: Reports: No Symptoms Skin: Reports: No Symptoms Psychiatric: Reports: No Symptoms Neurological: Reports: No Symptoms Hematologic/Lymphatic: Reports: No Symptoms Immunologic: Reports: No Symptoms L&D Exam - Exam Exam: See Below - Vital Signs Vital Signs: VSS, afebrile. See flowsheet. Weight: 195 lb - OB Specific Fundal Height In cm: 38 Contraction Duration (sec): Occasional Contraction Frequency (min): 50-60 Contraction Intensity: Mild Movement: Active Heart Tones: Present Heart Tones per Min: 130 Heart Rate (FHR) Variability: Moderate (6-25 bmp) - Exam General: Alert, Oriented, Cooperative, Mild Distress HEENT: Conjunctiva Clear, Hearing Intact, Mucosa Moist & [place], Nares Patent, PERRLA Neck: Supple, Trachea Midline Lungs: Clear to Auscultation, Normal Respiratory Effort Cardiovascular: Regular Rate, Regular Rhythm GI/Abdominal Exam: Normal Bowel Sounds, Soft, Non-Tender, No Organomegaly, No Distention Rectal Exam: Deferred Genitourinary: Enlarged uterus (Gravid uterus) Back Exam: Normal Inspection, Full Range of Motion Extremities: Normal Inspection, Normal Range of Motion, Non-Tender, No Pedal Edema, Normal Capillary Refill Skin: Warm, Dry, Intact Neurological: Cranial Nerves Intact, Reflexes Equal Bilateral Psychiatric: Alert, Normal Affect, Normal Mood - Patient Data Lab Results Last 24 hrs: Laboratory Results - last 24 hr 11/03/20 11/03/20 Range/Units 05:42 05:42 WBC 9.15 (4.0-11.0) K/uL RBC 4.29 L (4.30-5.90) M/uL Hgb 14.2 (12.0-16.0) g/dL Hct 41.4 (36.0-46.0) % MCV 96.5 (80.0-98.0) fL MCH 33.1 H (27.0-32.0) pg MCHC 34.3 (31.0-37.0) g/dL RDW Std Deviation 48.5 (28.0-62.0) fl RDW Coeff of Laura 14 (11.0-15.0) % Plt Count 257 (150-400) K/uL MPV 10.30 (7.40-12.00) fL Nucleated RBC % 0.0 /100WBC Nucleated RBCs # 0 K/uL Blood Type O POSITIVE Antibody Screen NEGATIVE Result Diagrams: 11/03/20 05:42 - Problem List (1) H/O section SNOMED Code(s): 959977855 ICD Code: Z98.891 - HISTORY OF UTERINE SCAR FROM PREVIOUS SURGERY Status: Acute Priority: High Current Visit: Yes (2) 38 weeks gestation of SNOMED Code(s): 33446581 ICD Code: Z3A.38 - 38 WEEKS GESTATION OF Status: Acute Priority: High Current Visit: Yes Problem List Initiated/Reviewed/Updated: Yes Orders Last 24hrs: Active Orders 24 hr Category Date Time Status Patient Status [ADT] Routine ADT 11/03/20 06:35 Active Blood Glucose Check, Bedside [RC] PRN Care 11/03/20 06:43 Active Bradycardia-Neuroaxis [employer] [RC] ROUTINE Care 11/03/20 06:43 Active Bradycardia-Neuroaxis [employer] [RC] ROUTINE Care 11/03/20 07:12 Active Non Stress Test [RC] PER UNIT ROUTINE Care 11/03/20 06:35 Active Hypertension-Neuroaxis [employer] [RC] ROUTINE Care 11/03/20 06:43 Active Hypertension-Neuroaxis [employer] [RC] ROUTINE Care 11/03/20 07:12 Active Hypotension-Neuroaxis [employer] [RC] ROUTINE Care 11/03/20 06:43 Active Hypotension-Neuroaxis [employer] [RC] ROUTINE Care 11/03/20 07:12 Active Notify Provider Vital Signs [RC] ASDIRECTED Care 11/03/20 06:43 Active Notify Provider Vital Signs [RC] PRN Care 11/03/20 10:00 Active Oxygen Therapy [RC] PER UNIT ROUTINE Care 11/03/20 07:12 Active Oxygen Therapy [RC] PER UNIT ROUTINE Care 11/03/20 07:12 Active Oxygen Therapy [RC] PER UNIT ROUTINE Care 11/03/20 07:12 Active Oxygen Therapy [RC] PRN Care 11/03/20 06:43 Active Peripheral IV Care [RC] PRN Care 11/03/20 06:35 Active Procedure Site Prep Instruct [RC] ASDIRECTED Care 11/03/20 06:35 Active Up ad Ramona [RC] ASDIRECTED Care 11/03/20 06:35 Active Verify Patient Consent Obtain [RC] ASDIRECTED Care 11/03/20 06:35 Active Vital Signs [RC] PER UNIT ROUTINE Care 11/03/20 06:35 Active Vital Signs [RC] Q1H Care 11/03/20 07:12 Active Vital Signs [RC] Q1H Care 11/03/20 07:12 Active Vital Signs [RC] Q1H Care 11/03/20 07:12 Active Vital Signs [RC] Q5M Care 11/03/20 06:43 Hold Vital Signs [RC] Q5M Care 11/03/20 07:12 Active RPR (SYPHILIS SERO) W/ RFLX [REF] Routine Lab 11/03/20 05:42 Received HYDROmorphone [Dilaudid] Med 11/03/20 06:49 Active 0.5 mg IVPUSH Q10M PRN Lactated Ringers [Ringers, Lactated] 1,000 ml Med 11/03/20 06:45 Active IV BOLUS Metoclopramide [Reglan] Med 11/03/20 06:43 Active 10 mg IVPUSH ONETIME PRN Naloxone [Narcan] Med 11/03/20 06:43 Active 0.1 mg IVPUSH ASDIRECTED PRN Ondansetron [Zofran] Med 11/03/20 06:43 Active 4 mg IVPUSH ONETIME PRN Oxytocin/0.9 % Sodium Chloride [Oxytocin 30 Unit/500 ML Med 11/03/20 06:45 Active -NS] 30 unit in 500 ml IV TITRATE Sodium Chloride 0.9% [Normal Saline] Med 11/03/20 06:35 Active 10 ml IV ASDIRECTED PRN Sodium Chloride 0.9% [Saline Flush] Med 11/03/20 06:35 Active 10 ml FLUSH ASDIRECTED PRN Sodium Chloride 0.9% [Saline Flush] Med 11/03/20 06:35 Active 2.5 ml FLUSH ASDIRECTED PRN fentaNYL [Sublimaze] Med 11/03/20 06:43 Active 50 mcg IVPUSH Q5M PRN AN Neuroaxis [employer] Precaution Reflex [OM.PC] PER Oth 11/03/20 07:15 Ordered UNIT ROUTINE Peripheral IV Insertion Adult [OM.PC] Routine Oth 11/03/20 06:35 Ordered Pulse Oximetry Continuous Monitoring [OM.PC] Routine Oth 11/03/20 06:43 Ordered Schedule Procedure [COMM] Per Unit Routine Oth 11/03/20 06:35 Ordered Resuscitation Status Routine Resus Stat 11/03/20 06:35 Ordered Medication Orders Fentanyl (Fentanyl 100 Mcg/2 Ml Sdv) 50 mcg IVPUSH Q5M PRN PRN Reason: Pain (mild 1-3) Hydromorphone HCl (Hydromorphone 2 Mg/Ml Syringe) 0.5 mg IVPUSH Q10M PRN PRN Reason: Pain (moderate 4-6) Lactated Ringer's (Ringers, Lactated) 1,000 mls @ 500 mls/hr IV BOLUS [facility] Last Admin: 11/03/20 07:00 Dose: 500 mls/hr Documented by: Infusion: 11/03/20 07:00 Dose: 500 mls/hr Documented by: Admin: 11/03/20 06:00 Dose: 500 mls/hr Documented by: KUSH Oxytocin/Sodium Chloride (Oxytocin 30 Unit/500 Ml-Ns) 30 unit in 500 mls @ 250 mls/hr IV TITRATE TERESITA Metoclopramide HCl (Metoclopramide 10 Mg/2 Ml Sdv) 10 mg IVPUSH ONETIME PRN PRN Reason: Nausea/Vomiting Naloxone HCl (Naloxone 0.4 Mg/Ml Syringe) 0.1 mg IVPUSH ASDIRECTED PRN PRN Reason: Respiratory Depression Ondansetron HCl (Ondansetron 4 Mg/2 Ml Sdv) 4 mg IVPUSH ONETIME PRN PRN Reason: Nausea/Vomiting Sodium Chloride (Sodium Chloride 0.9% 10 Ml Syringe) 10 ml FLUSH ASDIRECTED PRN PRN Reason: Keep Vein Open Sodium Chloride (Sodium Chloride 0.9% 2.5 Ml Syringe) 2.5 ml FLUSH ASDIRECTED PRN PRN Reason: Keep Vein Open Sodium Chloride (Sodium Chloride 0.9% 10 Ml Sdv) 10 ml IV ASDIRECTED PRN PRN Reason: IV Use Assessment/Plan Comment:: Admit to inpatient observation for encounter for planned repeat LTCS today. RBAs of planned repeat LTCS discussed in office extensively with Dr. Monique, operative and blood consents signed in office 11/01/2020. O pos, Ab screen neg, RI, GBS pos bacteruria. NKDA. Plan for bulmaro-operative antibiotic prophylaxis. See new orders. Dr. Monique at bedside and agreeable with POC.
[2020-11-03] MEDS ORDERED: Lanolin 100% Cream 7 GM Tube TOP PRN (08:46)
[2020-11-03] MEDS ORDERED: Oxytocin 10 Units/1 ML SDV IM PRN (08:46)
[2020-11-03] MEDS ORDERED: diphenhydrAMINE 50 MG/ML SDV IVPUSH PRN (08:46)
[2020-11-03] MEDS ORDERED: Misoprostol 200 MCG Tab RECTAL PRN (08:46)
[2020-11-03] MEDS ORDERED: Bisacodyl 10 MG Supp RECTAL PRN (08:46)
[2020-11-03] MEDS ORDERED: Methylergonovine 0.2 MG/1 ML Amp IM PRN (08:46)
[2020-11-03] MEDS ORDERED: Tranexamic Acid 1,000 MG in Sodium Chloride 0.9% 100 ML IV PRN (08:46)
--- NOTE | 2020-11-03 08:51 | PCM.OPNOTE ---
- General Post-Op/Procedure Note Date of Surgery/Procedure: 11/03/20 Operative Procedure(s): Repeat C/section. Pre Op Diagnosis: IUP 38+5 previous C/section. Post-Op Diagnosis: Same Anesthesia Technique: Spinal Primary Surgeon: Ish Monique Anesthesia Provider: Parvin Prescott EBL in mLs: 750 Complications: None Condition: Good
[2020-11-03] MEDS ORDERED: Lactated Ringers 1,000 ML IV SCH (09:00)
--- NOTE | 2020-11-03 09:45 | PCM.POSTAN ---
POST ANESTHESIA ASSESSMENT - MENTAL STATUS Mental Status: Alert, Oriented - RESPIRATORY Respiratory Status: Respiratory Rate WNL, Airway Patent, O2 Saturation Stable - CARDIOVASCULAR CV Status: Pulse Rate WNL, Blood Pressure Stable - GASTROINTESTINAL GI Status: No Symptoms - POST OP HYDRATION Hydration Status: Adequate & Stable
[2020-11-03] MEDS: Ketorolac 30 MG/ML SDV IVPUSH SCH ×3 (10:13→23:45)
[2020-11-03] MEDS ORDERED: fentaNYL 250 MCG/5 ML SDV ONE (10:17)
[2020-11-03] MEDS ORDERED: Furosemide 40 MG/4 ML VIAL ONE (10:20)
--- NOTE | 2020-11-03 14:31 | PCM48HPAN ---
Post Anesthesia Note - EVALUATION WITHIN 48HRS OF ANESTHETIC Vital Signs in Normal Range: Yes Patient Participated in Evaluation: Yes Respiratory Function Stable: Yes Airway Patent: Yes Cardiovascular Function Stable: Yes Hydration Status Stable: Yes Pain Control Satisfactory: Yes Nausea and Vomiting Control Satisfactory: Yes Mental Status Recovered: Yes Vital Signs: Last Vital Signs Temp 97.3 F 11/03/20 13:00 Pulse 58 L 11/03/20 13:00 Resp 15 11/03/20 14:00 BP 93/57 L 11/03/20 13:00 Pulse Ox 95 11/03/20 14:00
[2020-11-03] MEDS: Docusate Sodium 100 MG Cap PO SCH (23:44)
[2020-11-04] MEDS: Ketorolac 30 MG/ML SDV IVPUSH SCH ×2 (05:49→18:27)
[2020-11-04] MEDS: Docusate Sodium 100 MG Cap PO SCH ×2 (08:31)
--- NOTE | 2020-11-04 08:35 | OR ---
SURGEON: Ish Monique MD DATE OF PROCEDURE: 11/03/2020 PREOPERATIVE DIAGNOSIS: Intrauterine 38+ 5, advanced maternal age, previous section. POSTOPERATIVE DIAGNOSIS: Intrauterine 38+ 5, advanced maternal age, previous section. OPERATION PERFORMED: Repeat low transverse section. PRIMARY SURGEON: Ish Monique MD ORDER MANAGER: Parvin Prescott CNM ESTIMATED BLOOD LOSS: 150 mL. COMPLICATIONS: None. FINDINGS: Female fetus, score reported to be 8 and 9. There is dense scar encountered throughout the layer of doing the section. INDICATION FOR SURGERY: This patient is 37. She is advanced maternal age, that is why she is sectioned before her 39 weeks. She had no issue or complication. Her GBS status is negative. Her diabetes screen is negative. PROCEDURE IN DETAIL: The patient was brought to the OR, properly identified, and after adequate level of spinal anesthesia, the patient was prepped and draped in sterile fashion as usual. Low transverse Pfannenstiel skin incision done. Lior's fascia and rectus fascia were opened in the direction of the incision. The 2 recti muscles were and dense scar encountered through the old layer as we entered the abdomen, but it is well dealt with appropriately and the oozing stopped by using the electrocautery judiciously. Once the lower uterine segment was identified and bladder retractor was placed in place and then low transverse Pfannenstiel skin incision was done, skin extended manually with the hand, the fetus was in a vertex position, delivered without any problem, cried immediately score later on reported to be 8 and 9. The weight was not available. The placenta delivered spontaneous, complete, and intact, and sent for disposal and then after that, repair of the lower uterine segment was done with 2-0 Vicryl interlocking in 2 layers. Inspection of the lower uterine segment shows no oozing, no bleeding. The peritoneal cavity, after evacuated from all blood and blood clot, closed with 3-0 Vicryl continuous. The rectus fascia was closed with #1 PDS double strand continuous, and the Lior's fascia with 3-0 Vicryl continuous. The skin closed with 3-0 in a subcuticular fashion. Instrument and sponge count was correct. The patient tolerated the procedure well, went to recovery room in stable general condition. JEYSON / MODAlma Rosa /[id number]
--- NOTE | 2020-11-04 09:01 | PCM.PNPP ---
- General Info Date of Service: 11/04/20 Admission Dx/Problem (Free Text): Patient Status Order with Admit Dx/Problem 11/03/20 06:35 Patient Status [ADT] Routine Admission Diagnosis/Problem Admission Diagnosis/Problem 11/03/20 07:54 Binta is a 35 yo current PPD1 S/P planned repeat low transverse section d/t h/o LTCS x2 at 38+5 weeks gestation (LUIS(LMP) 11/12/2020). O pos, Ab neg, RI, GBS pos with adequate bulmaro-operative prophylaxis. Patient has no complaints or concerns at this time. Patient is bottle and well, resting comfortably in bed with in arms. Patient reports she is eating, voiding, ambulating independently and without difficulty. Patient denies any problems or concerns at this time except mild-moderate intermittent uterine cramping relieved with IV Toradol. Patient reports small vaginal bleeding with no clots. Low transverse incision MEREDITH dressing clean, dry, intact, small old blood noted to right side. Functional Status: Reports: Pain Controlled, Tolerating Diet, Ambulating, Urinating - Review of Systems General: Reports: No Symptoms HEENT: Reports: No Symptoms Pulmonary: Reports: No Symptoms Cardiovascular: Reports: No Symptoms Gastrointestinal: Reports: No Symptoms Genitourinary: Reports: No Symptoms Musculoskeletal: Reports: No Symptoms Skin: Reports: No Symptoms Neurological: Reports: No Symptoms Psychiatric: Reports: No Symptoms - General Info Date of Service: 11/04/20 - Patient Data Vital Signs - Most Recent: Last Vital Signs Temp 97.8 F 11/04/20 04:26 Pulse 56 L 11/04/20 06:00 Resp 18 11/04/20 06:00 BP 84/50 L 11/04/20 04:26 Pulse Ox 98 11/04/20 06:00 Weight - Most Recent: 193 lb Lab Results - Last 24 Hours: Laboratory Results - last 24 hr 11/04/20 Range/Units 05:27 Hgb 11.8 L (12.0-16.0) g/dL Hct 34.6 L (36.0-46.0) % Med Orders - Current: Current Medications Bisacodyl (Bisacodyl 10 Mg Supp) 10 mg RECTAL ONETIME PRN PRN Reason: Constipation Diphenhydramine HCl (Diphenhydramine 50 Mg/Ml Sdv) 25 mg IVPUSH Q6H PRN PRN Reason: Itching or Nausea Docusate Sodium (Docusate Sodium 100 Mg Cap) 100 mg PO BID [facility] Last Admin: 11/04/20 08:31 Dose: 100 mg Documented by: Emollient Ointment (Lanolin 100% Cream 7 Gm Tube) 0 gm TOP ASDIRECTED PRN PRN Reason: Sore Nipples Fentanyl (Fentanyl 100 Mcg/2 Ml Sdv) 50 mcg IVPUSH Q5M PRN PRN Reason: Pain (mild 1-3) Hydromorphone HCl (Hydromorphone 2 Mg/Ml Syringe) 0.5 mg IVPUSH Q10M PRN PRN Reason: Pain (moderate 4-6) Lactated Ringer's (Ringers, Lactated) 1,000 mls @ 500 mls/hr IV BOLUS [facility] Last Admin: 11/03/20 08:06 Dose: 500 mls/hr Documented by: Oxytocin/Sodium Chloride (Oxytocin 30 Unit/500 Ml-Ns) 30 unit in 500 mls @ 250 mls/hr IV TITRATE [facility] Lactated Ringer's (Ringers, Lactated) 1,000 mls @ 125 mls/hr IV ASDIRECTED [facility] Last Admin: 11/03/20 10:58 Dose: 125 mls/hr Documented by: Tranexamic Acid 1,000 mg/ (Sodium Chloride) 110 mls @ 660 mls/hr IV ONETIME PRN PRN Reason: Bleeding Ibuprofen (Ibuprofen 800 Mg Tab) 800 mg PO Q8H PRN PRN Reason: mild pain or fever Ketorolac Tromethamine (Ketorolac 30 Mg/Ml Sdv) 30 mg IVPUSH Q6H [facility] Stop: 11/04/20 09:01 Last Admin: 11/04/20 05:49 Dose: 30 mg Documented by: Methylergonovine Maleate (Methylergonovine 0.2 Mg/1 Ml Amp) 0.2 mg IM ONETIME PRN PRN Reason: Excessive Vaginal Bleeding Metoclopramide HCl (Metoclopramide 10 Mg/2 Ml Sdv) 10 mg IVPUSH ONETIME PRN PRN Reason: Nausea/Vomiting Misoprostol (Misoprostol 200 Mcg Tab) 1,000 mcg RECTAL ONETIME PRN PRN Reason: excessive bleeding Naloxone HCl (Naloxone 0.4 Mg/Ml Syringe) 0.1 mg IVPUSH ASDIRECTED PRN PRN Reason: Respiratory Depression Ondansetron HCl (Ondansetron 4 Mg/2 Ml Sdv) 4 mg IVPUSH ONETIME PRN PRN Reason: Nausea/Vomiting Ondansetron HCl (Ondansetron 4 Mg/2 Ml Sdv) 4 mg IVPUSH Q4H PRN PRN Reason: Nausea/Vomiting Oxycodone/Acetaminophen (Acetaminophen/Oxycodone 325-5 Mg Tab) 1 tab PO Q4H PRN PRN Reason: Pain (moderate 4-6) Oxycodone/Acetaminophen (Acetaminophen/Oxycodone 325-5 Mg Tab) 2 tab PO Q4H PRN PRN Reason: Pain (moderate 4-6) Oxytocin (Oxytocin 10 Units/1 Ml Sdv) 10 unit IM ASDIRECTED PRN PRN Reason: Excessive Vaginal Bleeding Sodium Chloride (Sodium Chloride 0.9% 10 Ml Syringe) 10 ml FLUSH ASDIRECTED PRN PRN Reason: Keep Vein Open Sodium Chloride (Sodium Chloride 0.9% 2.5 Ml Syringe) 2.5 ml FLUSH ASDIRECTED PRN PRN Reason: Keep Vein Open Sodium Chloride (Sodium Chloride 0.9% 10 Ml Sdv) 10 ml IV ASDIRECTED PRN PRN Reason: IV Use Discontinued Medications Cefazolin Sodium (Cefazolin 1 Gm Vial) Confirm Administered Dose 2 gm .ROUTE .STK-MED ONE Stop: 11/03/20 07:35 Citric Acid/Sodium Citrate (Citric Acid/Sodium Citrate Solution 30 Ml Cup) 30 ml PO ONETIME ONE Stop: 11/03/20 06:36 Last Admin: 11/03/20 20:34 Dose: Not Given Documented by: Dexamethasone (Dexamethasone 4 Mg/Ml 5 Ml Mdv) Confirm Administered Dose 20 mg .ROUTE .STK-MED ONE Stop: 11/03/20 07:47 Fentanyl (Fentanyl 250 Mcg/5 Ml Sdv) Confirm Administered Dose 250 mcg .ROUTE .STK-MED ONE Stop: 11/03/20 10:18 Furosemide (Furosemide 40 Mg/4 Ml Vial) Confirm Administered Dose 40 mg .ROUTE .STK-MED ONE Stop: 11/03/20 10:21 Cefazolin Sodium/Dextrose 2 gm (/ Premix) 50 mls @ 100 mls/hr IV ONETIME ONE Stop: 11/03/20 07:04 Last Admin: 11/03/20 20:33 Dose: Not Given Documented by: Ketorolac Tromethamine (Ketorolac 30 Mg/Ml Sdv) Confirm Administered Dose 30 mg .ROUTE .STK-MED ONE Stop: 11/03/20 06:53 Ketorolac Tromethamine (Ketorolac 30 Mg/Ml Sdv) 30 mg IVPUSH Q6H [facility] Stop: 11/04/20 09:01 Last Admin: 11/03/20 15:07 Dose: 30 mg Documented by: Morphine Sulfate (Morphine Pf 10 Mg/10 Ml Sdv) Confirm Administered Dose 10 mg .ROUTE .STK-MED ONE Stop: 11/03/20 06:57 Octyl Cyanoacrylate (Octyl 2-Cyanoacrylate 1 Tube) Confirm Administered Dose 1 applic .ROUTE .STK-MED ONE Stop: 11/03/20 07:42 Last Admin: 11/03/20 20:35 Dose: Not Given Documented by: Ondansetron HCl (Ondansetron 4 Mg/2 Ml Sdv) 4 mg IVPUSH ONETIME ONE Stop: 11/03/20 06:44 Last Admin: 11/03/20 20:34 Dose: Not Given Documented by: Ondansetron HCl (Ondansetron 4 Mg/2 Ml Sdv) Confirm Administered Dose 4 mg .ROUTE .STK-MED ONE Stop: 11/03/20 06:53 Ondansetron HCl (Ondansetron 4 Mg/2 Ml Sdv) Confirm Administered Dose 4 mg .ROUTE .STK-MED ONE Stop: 11/03/20 07:47 Oxytocin (Oxytocin 10 Units/1 Ml Sdv) Confirm Administered Dose 30 unit .ROUTE .STK-MED ONE Stop: 11/03/20 06:53 Phenylephrine HCl (Phenylephrine 1% 10 Mg/Ml Sdv) Confirm Administered Dose 10 mg .ROUTE .STK-MED ONE Stop: 11/03/20 07:47 - Interaction Infant Disposition, : [place] at Bedside Interaction: Holding Feeding: Bottle Fed Infant, Breastfed ; Nursed Well, Continues to Breastfeed, Encouraged to Breastfeed Support Person: - Recovery Exam Fundal Tone: Firm Fundal Level: 1 Fingerbreadths Below Umbilicus Fundal Placement: Midline Lochia Amount: Small Lochia Color: Rubra/Red Perineum Description: Intact, Minimal Bruising/Swelling Episiotomy/Laceration: None Bladder Status: Nonpalpable, Indwelling Catheter in Place Urinary Elimination: Indwelling Catheter - Exam General: Alert, Oriented, Cooperative, No Acute Distress HEENT: Pupils Equal, Mucous Membr. Moist/[place] Neck: Supple Lungs: Clear to Auscultation, Normal Respiratory Effort Cardiovascular: Regular Rate, Regular Rhythm GI/Abdominal Exam: Normal Bowel Sounds, Soft, Non-Tender, No Organomegaly, No Distention Extremities: Normal Inspection, Normal Range of Motion, Non-Tender, No Pedal Edema, Normal Capillary Refill Skin: Warm, Dry, Intact Wound/Incisions: Dressing Dry and Intact Neurological: No New Focal Deficit Psy/Mental Status: Alert, Normal Affect, Normal Mood - Problem List & Annotations (1) H/O section SNOMED Code(s): 089114417 Code(s): Z98.891 - HISTORY OF UTERINE SCAR FROM PREVIOUS SURGERY Status: Acute Priority: High Current Visit: Yes (2) 38 weeks gestation of SNOMED Code(s): 61809558 Code(s): Z3A.38 - 38 WEEKS GESTATION OF Status: Acute Priority: High Current Visit: Yes - Problem List Review Problem List Initiated/Reviewed/Updated: Yes - Assessment Assessment:: Plan to continue inpatient course. Hemodynamically stable, afebrile. Hemoglobin 11.8, F/U as indicated. Continue IV analgesia as ordered; plan to D/C IV medication and start PO analgesia today. Continue EBFing, eating, voiding, ambulating independently. Plan to ambulate 3-5 time per day. Plan to D/C aleman catheter; if patient has not voided within 6 hours of discontinuation, plan to notify provider today. Warning S/Ss, when to call for help discussed. Dr. Monique notified and agreeable with POC. - Plan Plan:: Admit to inpatient observation for encounter for planned repeat LTCS today. RBAs of planned repeat LTCS discussed in office extensively with Dr. Monique, operative and blood consents signed in office 11/01/2020. O pos, Ab screen neg, RI, GBS pos bacteruria. NKDA. Plan for bulmaro-operative antibiotic prophylaxis. See new orders. Dr. Monique at bedside and agreeable with POC.
[2020-11-04] MEDS: Acetaminophen/oxyCODONE 325-5 MG Tab PO PRN (17:38)
[2020-11-04] MEDS: Ibuprofen 800 MG Tab PO PRN (20:30)
[2020-11-05] MEDS: Acetaminophen/oxyCODONE 325-5 MG Tab PO PRN ×3 (04:28→22:36)
--- NOTE | 2020-11-05 09:54 | PCM.SURGPN ---
- General Info Date of Service: 11/05/20 POD#: 2 Functional Status: Reports: Pain Controlled - Review of Systems General: Reports: No Symptoms HEENT: Reports: No Symptoms Pulmonary: Reports: No Symptoms Cardiovascular: Reports: No Symptoms Gastrointestinal: Reports: No Symptoms Genitourinary: Reports: No Symptoms Musculoskeletal: Reports: No Symptoms Skin: Reports: No Symptoms Neurological: Reports: No Symptoms Psychiatric: Reports: No Symptoms - Patient Data Vitals - Most Recent: Last Vital Signs Temp 36.2 C 11/05/20 04:20 Pulse 75 11/05/20 04:20 Resp 16 11/05/20 04:20 BP 100/52 L 11/05/20 04:20 Pulse Ox 96 11/05/20 04:20 Weight - Most Recent: 87.543 kg Lab Results Last 24 Hrs: Laboratory Results - last 24 hr 11/03/20 Range/Units 05:42 RPR Non-Reac (Non-Reac) Med Orders - Current: Current Medications Bisacodyl (Bisacodyl 10 Mg Supp) 10 mg RECTAL ONETIME PRN PRN Reason: Constipation Diphenhydramine HCl (Diphenhydramine 50 Mg/Ml Sdv) 25 mg IVPUSH Q6H PRN PRN Reason: Itching or Nausea Docusate Sodium (Docusate Sodium 100 Mg Cap) 100 mg PO BID [facility] Last Admin: 11/04/20 08:31 Dose: 100 mg Documented by: Emollient Ointment (Lanolin 100% Cream 7 Gm Tube) 0 gm TOP ASDIRECTED PRN PRN Reason: Sore Nipples Fentanyl (Fentanyl 100 Mcg/2 Ml Sdv) 50 mcg IVPUSH Q5M PRN PRN Reason: Pain (mild 1-3) Hydromorphone HCl (Hydromorphone 2 Mg/Ml Syringe) 0.5 mg IVPUSH Q10M PRN PRN Reason: Pain (moderate 4-6) Lactated Ringer's (Ringers, Lactated) 1,000 mls @ 500 mls/hr IV BOLUS [facility] Last Admin: 11/03/20 08:06 Dose: 500 mls/hr Documented by: Oxytocin/Sodium Chloride (Oxytocin 30 Unit/500 Ml-Ns) 30 unit in 500 mls @ 250 mls/hr IV TITRATE [facility] Lactated Ringer's (Ringers, Lactated) 1,000 mls @ 125 mls/hr IV ASDIRECTED [facility] Last Admin: 11/03/20 10:58 Dose: 125 mls/hr Documented by: Tranexamic Acid 1,000 mg/ (Sodium Chloride) 110 mls @ 660 mls/hr IV ONETIME PRN PRN Reason: Bleeding Ibuprofen (Ibuprofen 800 Mg Tab) 800 mg PO Q8H PRN PRN Reason: mild pain or fever Last Admin: 11/04/20 20:30 Dose: 800 mg Documented by: Methylergonovine Maleate (Methylergonovine 0.2 Mg/1 Ml Amp) 0.2 mg IM ONETIME PRN PRN Reason: Excessive Vaginal Bleeding Metoclopramide HCl (Metoclopramide 10 Mg/2 Ml Sdv) 10 mg IVPUSH ONETIME PRN PRN Reason: Nausea/Vomiting Misoprostol (Misoprostol 200 Mcg Tab) 1,000 mcg RECTAL ONETIME PRN PRN Reason: excessive bleeding Naloxone HCl (Naloxone 0.4 Mg/Ml Syringe) 0.1 mg IVPUSH ASDIRECTED PRN PRN Reason: Respiratory Depression Ondansetron HCl (Ondansetron 4 Mg/2 Ml Sdv) 4 mg IVPUSH ONETIME PRN PRN Reason: Nausea/Vomiting Ondansetron HCl (Ondansetron 4 Mg/2 Ml Sdv) 4 mg IVPUSH Q4H PRN PRN Reason: Nausea/Vomiting Oxycodone/Acetaminophen (Acetaminophen/Oxycodone 325-5 Mg Tab) 1 tab PO Q4H PRN PRN Reason: Pain (moderate 4-6) Last Admin: 11/05/20 04:28 Dose: 1 tab Documented by: Oxycodone/Acetaminophen (Acetaminophen/Oxycodone 325-5 Mg Tab) 2 tab PO Q4H PRN PRN Reason: Pain (moderate 4-6) Oxytocin (Oxytocin 10 Units/1 Ml Sdv) 10 unit IM ASDIRECTED PRN PRN Reason: Excessive Vaginal Bleeding Sodium Chloride (Sodium Chloride 0.9% 10 Ml Syringe) 10 ml FLUSH ASDIRECTED PRN PRN Reason: Keep Vein Open Sodium Chloride (Sodium Chloride 0.9% 2.5 Ml Syringe) 2.5 ml FLUSH ASDIRECTED PRN PRN Reason: Keep Vein Open Sodium Chloride (Sodium Chloride 0.9% 10 Ml Sdv) 10 ml IV ASDIRECTED PRN PRN Reason: IV Use Discontinued Medications Cefazolin Sodium (Cefazolin 1 Gm Vial) Confirm Administered Dose [address] .[facility] ONE Stop: 11/03/20 07:35 Citric Acid/Sodium Citrate (Citric Acid/Sodium Citrate Solution 30 Ml Cup) 30 ml PO ONETIME ONE Stop: 11/03/20 06:36 Last Admin: 11/03/20 20:34 Dose: Not Given Documented by: Dexamethasone (Dexamethasone 4 Mg/Ml 5 Ml Mdv) Confirm Administered Dose 20 mg .ROUTE .[facility]-MED ONE Stop: 11/03/20 07:47 Fentanyl (Fentanyl 250 Mcg/5 Ml Sdv) Confirm Administered Dose [address] .[facility] ONE Stop: 11/03/20 10:18 Furosemide (Furosemide 40 Mg/4 Ml Vial) Confirm Administered Dose [address] ONE Stop: 11/03/20 10:21 Cefazolin Sodium/Dextrose 2 gm (/ Premix) 50 mls @ 100 mls/hr IV ONETIME ONE Stop: 11/03/20 07:04 Last Admin: 11/03/20 20:33 Dose: Not Given Documented by: Ketorolac Tromethamine (Ketorolac 30 Mg/Ml Sdv) Confirm Administered Dose 30 [address] ONE Stop: 11/03/20 06:53 Ketorolac Tromethamine (Ketorolac 30 Mg/Ml Sdv) 30 mg IVPUSH Q6H [facility] Stop: 11/04/20 09:01 Last Admin: 11/03/20 15:07 Dose: 30 mg Documented by: Ketorolac Tromethamine (Ketorolac 30 Mg/Ml Sdv) 30 mg IVPUSH Q6H [facility] Stop: 11/04/20 09:01 Last Admin: 11/04/20 18:27 Dose: Not Given Documented by: Morphine Sulfate (Morphine Pf 10 Mg/10 Ml Sdv) Confirm Administered Dose 10 mg .ROUTE .[facility]-MED ONE Stop: 11/03/20 06:57 Octyl Cyanoacrylate (Octyl 2-Cyanoacrylate 1 Tube) Confirm Administered Dose [address] .[address] .[facility] ONE Stop: 11/03/20 07:42 Last Admin: 11/03/20 20:35 Dose: Not Given Documented by: Ondansetron HCl (Ondansetron 4 Mg/2 Ml Sdv) 4 mg IVPUSH ONETIME ONE Stop: 11/03/20 06:44 Last Admin: 11/03/20 20:34 Dose: Not Given Documented by: Ondansetron HCl (Ondansetron 4 Mg/2 Ml Sdv) Confirm Administered Dose 4 mg .ROUTE .[facility]-MED ONE Stop: 11/03/20 06:53 Ondansetron HCl (Ondansetron 4 Mg/2 Ml Sdv) Confirm Administered Dose 4 mg .ROUTE .[facility]-MED ONE Stop: 11/03/20 07:47 Oxytocin (Oxytocin 10 Units/1 Ml Sdv) Confirm Administered Dose 30 unit .ROUTE .[facility]-MED ONE Stop: 11/03/20 06:53 Phenylephrine HCl (Phenylephrine 1% 10 Mg/Ml Sdv) Confirm Administered Dose 10 mg .ROUTE .[facility]-MED ONE Stop: 11/03/20 07:47 - Exam Wound/Incisions: Healing Well General: Alert, Oriented HEENT: Pupils Equal Neck: Supple Lungs: Clear to Auscultation, Normal Respiratory Effort Cardiovascular: Regular Rate, Regular Rhythm GI/Abdominal Exam: Normal Bowel Sounds, Soft, Non-Tender, No Organomegaly, No Distention, No Abnormal Bruit, No Mass, Pelvis Stable Extremities: Normal Inspection, Normal Range of Motion, Non-Tender, No Pedal Edema, Normal Capillary Refill Skin: Warm, Dry, Intact Neurological: No New Focal Deficit Psy/Mental Status: Alert, Normal Affect, Normal Mood Sepsis Event Note - Evaluation Sepsis Screening Result: No Definite Risk - Focused Exam Vital Signs: Vital Signs Temp Pulse Resp BP Pulse Ox 11/05/20 04:20 36.2 C 75 16 100/52 L 96 11/05/20 00:06 36.1 C 62 16 93/55 L 95 - Problem List Review Problem List Initiated/Reviewed/Updated: Yes - My Orders Last 24 Hours: Active Orders 24 hr Category Date Time Status Ibuprofen [Motrin] Med 11/04/20 15:00 Active 800 mg PO Q8H PRN Medication Orders Bisacodyl (Bisacodyl 10 Mg Supp) 10 mg RECTAL ONETIME PRN PRN Reason: Constipation Diphenhydramine HCl (Diphenhydramine 50 Mg/Ml Sdv) 25 mg IVPUSH Q6H PRN PRN Reason: Itching or Nausea Docusate Sodium (Docusate Sodium 100 Mg Cap) 100 mg PO BID [facility] Last Admin: 11/04/20 08:31 Dose: 100 mg Documented by: Admin: 11/04/20 08:31 Dose: Not Given Documented by: Admin: 11/03/20 23:44 Dose: 100 mg Documented by: KUSH Emollient Ointment (Lanolin 100% Cream 7 Gm Tube) 0 gm TOP ASDIRECTED PRN PRN Reason: Sore Nipples Fentanyl (Fentanyl 100 Mcg/2 Ml Sdv) 50 mcg IVPUSH Q5M PRN PRN Reason: Pain (mild 1-3) Hydromorphone HCl (Hydromorphone 2 Mg/Ml Syringe) 0.5 mg IVPUSH Q10M PRN PRN Reason: Pain (moderate 4-6) Lactated Ringer's (Ringers, Lactated) 1,000 mls @ 500 mls/hr IV BOLUS [facility] Last Admin: 11/03/20 08:06 Dose: 500 mls/hr Documented by: Infusion: 11/03/20 08:06 Dose: 500 mls/hr Documented by: Admin: 11/03/20 07:00 Dose: 500 mls/hr Documented by: Infusion: 11/03/20 07:00 Dose: 500 mls/hr Documented by: Admin: 11/03/20 06:00 Dose: 500 mls/hr Documented by: KUSH Oxytocin/Sodium Chloride (Oxytocin 30 Unit/500 Ml-Ns) 30 unit in 500 mls @ 250 mls/hr IV TITRATE [facility] Lactated Ringer's (Ringers, Lactated) 1,000 mls @ 125 mls/hr IV ASDIRECTED [facility] Last Admin: 11/03/20 10:58 Dose: 125 mls/hr Documented by: ARACELI Tranexamic Acid 1,000 mg/ (Sodium Chloride) 110 mls @ 660 mls/hr IV ONETIME PRN PRN Reason: Bleeding Ibuprofen (Ibuprofen 800 Mg Tab) 800 mg PO Q8H PRN PRN Reason: mild pain or fever Last Admin: 11/04/20 20:30 Dose: 800 mg Documented by: BALTAZAR Methylergonovine Maleate (Methylergonovine 0.2 Mg/1 Ml Amp) 0.2 mg IM ONETIME PRN PRN Reason: Excessive Vaginal Bleeding Metoclopramide HCl (Metoclopramide 10 Mg/2 Ml Sdv) 10 mg IVPUSH ONETIME PRN PRN Reason: Nausea/Vomiting Misoprostol (Misoprostol 200 Mcg Tab) 1,000 mcg RECTAL ONETIME PRN PRN Reason: excessive bleeding Naloxone HCl (Naloxone 0.4 Mg/Ml Syringe) 0.1 mg IVPUSH ASDIRECTED PRN PRN Reason: Respiratory Depression Ondansetron HCl (Ondansetron 4 Mg/2 Ml Sdv) 4 mg IVPUSH ONETIME PRN PRN Reason: Nausea/Vomiting Ondansetron HCl (Ondansetron 4 Mg/2 Ml Sdv) 4 mg IVPUSH Q4H PRN PRN Reason: Nausea/Vomiting Oxycodone/Acetaminophen (Acetaminophen/Oxycodone 325-5 Mg Tab) 1 tab PO Q4H PRN PRN Reason: Pain (moderate 4-6) Last Admin: 11/05/20 04:28 Dose: 1 tab Documented by: Admin: 11/04/20 17:38 Dose: 1 tab Documented by: HI Oxycodone/Acetaminophen (Acetaminophen/Oxycodone 325-5 Mg Tab) 2 tab PO Q4H PRN PRN Reason: Pain (moderate 4-6) Oxytocin (Oxytocin 10 Units/1 Ml Sdv) 10 unit IM ASDIRECTED PRN PRN Reason: Excessive Vaginal Bleeding Sodium Chloride (Sodium Chloride 0.9% 10 Ml Syringe) 10 ml FLUSH ASDIRECTED PRN PRN Reason: Keep Vein Open Sodium Chloride (Sodium Chloride 0.9% 2.5 Ml Syringe) 2.5 ml FLUSH ASDIRECTED PRN PRN Reason: Keep Vein Open Sodium Chloride (Sodium Chloride 0.9% 10 Ml Sdv) 10 ml IV ASDIRECTED PRN PRN Reason: IV Use - Assessment Assessment (Free Text/Narrative):: S/P C/section doing well. - Plan Plan (Free Text/Narrative):: Send home in am
[2020-11-05] MEDS: Docusate Sodium 100 MG Cap PO SCH ×2 (10:51→22:36)
[2020-11-05] MEDS: Ibuprofen 800 MG Tab PO PRN ×2 (11:05→22:36)
[2020-11-06] MEDS: Acetaminophen/oxyCODONE 325-5 MG Tab PO PRN (02:17)
[2020-11-06] MEDS: Ibuprofen 800 MG Tab PO PRN (08:04)
[2020-11-06] MEDS: Docusate Sodium 100 MG Cap PO SCH (09:09)
--- NOTE | 2020-11-06 10:14 | PCM.PNPP ---
- General Info Date of Service: 11/06/20 Functional Status: Reports: Pain Controlled - Review of Systems General: Reports: No Symptoms HEENT: Reports: No Symptoms Pulmonary: Reports: No Symptoms Cardiovascular: Reports: No Symptoms Gastrointestinal: Reports: No Symptoms Genitourinary: Reports: No Symptoms Musculoskeletal: Reports: No Symptoms Skin: Reports: No Symptoms Neurological: Reports: No Symptoms Psychiatric: Reports: No Symptoms - General Info Date of Service: 11/06/20 - Patient Data Vital Signs - Most Recent: Last Vital Signs Temp 35.8 C L 11/06/20 08:00 Pulse 67 11/06/20 08:00 Resp 15 11/06/20 08:00 BP 104/64 11/06/20 08:00 Pulse Ox 98 11/06/20 08:00 Weight - Most Recent: 87.543 kg Med Orders - Current: Current Medications Bisacodyl (Bisacodyl 10 Mg Supp) 10 mg RECTAL ONETIME PRN PRN Reason: Constipation Diphenhydramine HCl (Diphenhydramine 50 Mg/Ml Sdv) 25 mg IVPUSH Q6H PRN PRN Reason: Itching or Nausea Docusate Sodium (Docusate Sodium 100 Mg Cap) 100 mg PO BID [facility] Last Admin: 11/06/20 09:09 Dose: Not Given Documented by: Emollient Ointment (Lanolin 100% Cream 7 Gm Tube) 0 gm TOP ASDIRECTED PRN PRN Reason: Sore Nipples Fentanyl (Fentanyl 100 Mcg/2 Ml Sdv) 50 mcg IVPUSH Q5M PRN PRN Reason: Pain (mild 1-3) Hydromorphone HCl (Hydromorphone 2 Mg/Ml Syringe) 0.5 mg IVPUSH Q10M PRN PRN Reason: Pain (moderate 4-6) Lactated Ringer's (Ringers, Lactated) 1,000 mls @ 500 mls/hr IV BOLUS [facility] Last Admin: 11/03/20 08:06 Dose: 500 mls/hr Documented by: Oxytocin/Sodium Chloride (Oxytocin 30 Unit/500 Ml-Ns) 30 unit in 500 mls @ 250 mls/hr IV TITRATE [facility] Lactated Ringer's (Ringers, Lactated) 1,000 mls @ 125 mls/hr IV ASDIRECTED [facility] Last Admin: 11/03/20 10:58 Dose: 125 mls/hr Documented by: Tranexamic Acid 1,000 mg/ (Sodium Chloride) 110 mls @ 660 mls/hr IV ONETIME PRN PRN Reason: Bleeding Ibuprofen (Ibuprofen 800 Mg Tab) 800 mg PO Q8H PRN PRN Reason: mild pain or fever Last Admin: 11/06/20 08:04 Dose: 800 mg Documented by: Methylergonovine Maleate (Methylergonovine 0.2 Mg/1 Ml Amp) 0.2 mg IM ONETIME PRN PRN Reason: Excessive Vaginal Bleeding Metoclopramide HCl (Metoclopramide 10 Mg/2 Ml Sdv) 10 mg IVPUSH ONETIME PRN PRN Reason: Nausea/Vomiting Misoprostol (Misoprostol 200 Mcg Tab) 1,000 mcg RECTAL ONETIME PRN PRN Reason: excessive bleeding Naloxone HCl (Naloxone 0.4 Mg/Ml Syringe) 0.1 mg IVPUSH ASDIRECTED PRN PRN Reason: Respiratory Depression Ondansetron HCl (Ondansetron 4 Mg/2 Ml Sdv) 4 mg IVPUSH ONETIME PRN PRN Reason: Nausea/Vomiting Ondansetron HCl (Ondansetron 4 Mg/2 Ml Sdv) 4 mg IVPUSH Q4H PRN PRN Reason: Nausea/Vomiting Oxycodone/Acetaminophen (Acetaminophen/Oxycodone 325-5 Mg Tab) 1 tab PO Q4H PRN PRN Reason: Pain (moderate 4-6) Last Admin: 11/05/20 04:28 Dose: 1 tab Documented by: Oxycodone/Acetaminophen (Acetaminophen/Oxycodone 325-5 Mg Tab) 2 tab PO Q4H PRN PRN Reason: Pain (moderate 4-6) Last Admin: 11/06/20 02:17 Dose: 2 tab Documented by: Oxytocin (Oxytocin 10 Units/1 Ml Sdv) 10 unit IM ASDIRECTED PRN PRN Reason: Excessive Vaginal Bleeding Sodium Chloride (Sodium Chloride 0.9% 10 Ml Syringe) 10 ml FLUSH ASDIRECTED PRN PRN Reason: Keep Vein Open Sodium Chloride (Sodium Chloride 0.9% 2.5 Ml Syringe) 2.5 ml FLUSH ASDIRECTED PRN PRN Reason: Keep Vein Open Sodium Chloride (Sodium Chloride 0.9% 10 Ml Sdv) 10 ml IV ASDIRECTED PRN PRN Reason: IV Use Discontinued Medications Cefazolin Sodium (Cefazolin 1 Gm Vial) Confirm Administered Dose 2 gm .ROUTE .[facility] ONE Stop: 11/03/20 07:35 Citric Acid/Sodium Citrate (Citric Acid/Sodium Citrate Solution 30 Ml Cup) 30 ml PO ONETIME ONE Stop: 11/03/20 06:36 Last Admin: 11/03/20 20:34 Dose: Not Given Documented by: Dexamethasone (Dexamethasone 4 Mg/Ml 5 Ml Mdv) Confirm Administered Dose 20 mg .ROUTE .[facility]-MED ONE Stop: 11/03/20 07:47 Fentanyl (Fentanyl 250 Mcg/5 Ml Sdv) Confirm Administered Dose 250 mcg .ROUTE .[facility] ONE Stop: 11/03/20 10:18 Furosemide (Furosemide 40 Mg/4 Ml Vial) Confirm Administered Dose 40 mg .ROUTE .[facility] ONE Stop: 11/03/20 10:21 Cefazolin Sodium/Dextrose 2 gm (/ Premix) 50 mls @ 100 mls/hr IV ONETIME ONE Stop: 11/03/20 07:04 Last Admin: 11/03/20 20:33 Dose: Not Given Documented by: Ketorolac Tromethamine (Ketorolac 30 Mg/Ml Sdv) Confirm Administered Dose 30 mg .ROUTE .[facility] ONE Stop: 11/03/20 06:53 Ketorolac Tromethamine (Ketorolac 30 Mg/Ml Sdv) 30 mg IVPUSH Q6H [facility] Stop: 11/04/20 09:01 Last Admin: 11/03/20 15:07 Dose: 30 mg Documented by: Ketorolac Tromethamine (Ketorolac 30 Mg/Ml Sdv) 30 mg IVPUSH Q6H [facility] Stop: 11/04/20 09:01 Last Admin: 11/04/20 18:27 Dose: Not Given Documented by: Morphine Sulfate (Morphine Pf 10 Mg/10 Ml Sdv) Confirm Administered Dose 10 mg .ROUTE .[facility]-MED ONE Stop: 11/03/20 06:57 Octyl Cyanoacrylate (Octyl 2-Cyanoacrylate 1 Tube) Confirm Administered Dose 1 applic .ROUTE .[facility] ONE Stop: 11/03/20 07:42 Last Admin: 11/03/20 20:35 Dose: Not Given Documented by: Ondansetron HCl (Ondansetron 4 Mg/2 Ml Sdv) 4 mg IVPUSH ONETIME ONE Stop: 11/03/20 06:44 Last Admin: 11/03/20 20:34 Dose: Not Given Documented by: Ondansetron HCl (Ondansetron 4 Mg/2 Ml Sdv) Confirm Administered Dose 4 mg .ROUTE .[facility]-MED ONE Stop: 11/03/20 06:53 Ondansetron HCl (Ondansetron 4 Mg/2 Ml Sdv) Confirm Administered Dose 4 mg .ROUTE .[facility]-MED ONE Stop: 11/03/20 07:47 Oxytocin (Oxytocin 10 Units/1 Ml Sdv) Confirm Administered Dose 30 unit .ROUTE .[facility]-MED ONE Stop: 11/03/20 06:53 Phenylephrine HCl (Phenylephrine 1% 10 Mg/Ml Sdv) Confirm Administered Dose 10 mg .ROUTE .[facility]-MED ONE Stop: 11/03/20 07:47 - Interaction Infant Disposition, : in Room with Family Interaction: Holding Feeding: Bottle Fed , Breastfed Infant; Nursed Well, Continues to Breastfeed, Encouraged to Breastfeed Support Person: - Recovery Exam Fundal Tone: Firm Fundal Level: 1 Fingerbreadths Above Umbilicus Fundal Placement: Midline Lochia Amount: Scant Lochia Color: Rubra/Red Perineum Description: Intact, Minimal Bruising/Swelling Episiotomy/Laceration: None Bladder Status: Voiding Urinary Elimination: Voided - Exam General: Alert, Oriented HEENT: Pupils Equal Neck: Supple Lungs: Clear to Auscultation, Normal Respiratory Effort Cardiovascular: Regular Rate, Regular Rhythm GI/Abdominal Exam: Normal Bowel Sounds, Soft, Non-Tender, No Organomegaly, No Distention, No Abnormal Bruit, No Mass, Pelvis Stable Extremities: Normal Inspection, Normal Range of Motion, Non-Tender, No Pedal Edema, Normal Capillary Refill Skin: Warm, Dry, Intact Wound/Incisions: Healing Well Neurological: No New Focal Deficit Psy/Mental Status: Alert, Normal Affect, Normal Mood - Problem List Review Problem List Initiated/Reviewed/Updated: Yes - Assessment Assessment:: Plan to continue inpatient course. Hemodynamically stable, afebrile. Hemoglobin 11.8, F/U as indicated. Continue IV analgesia as ordered; plan to D/C IV medication and start PO analgesia today. Continue EBFing, eating, voiding, ambulating independently. Plan to ambulate 3-5 time per day. Plan to D/C aleman catheter; if patient has not voided within 6 hours of discontinuation, plan to notify provider today. Warning S/Ss, when to call for help discussed. Dr. Monique notified and agreeable with POC. - Plan Plan:: Admit to inpatient observation for encounter for planned repeat LTCS today. RBAs of planned repeat LTCS discussed in office extensively with Dr. Monique, operative and blood consents signed in office 11/01/2020. O pos, Ab screen neg, RI, GBS pos bacteruria. NKDA. Plan for bulmaro-operative antibiotic prophylaxis. See new orders. Dr. Monique at bedside and agreeable with POC.
[2020-11-06] MEDS ORDERED: Acetaminophen/HYDROcodone 325-5 MG Tab ONE (13:58)
== END 2020-11-06 12:03 | disposition home or self-care (01) | DRG 540 ==
LOC: MW.OB 05:32 → OBSVTOIN 06:35 → MW.OB 11:50
PROVIDERS: ADMIT Obstetrics & Gynecology; ATTEND Obstetrics & Gynecology
PROC: 10D00Z1 Extraction of Products of Conception, Low, Open Approach (ICD-10-PCS; principal; 2020-11-03)
DX: O34.211 Maternal care for low transverse scar from previous cesarean delivery (principal); Z37.0 Single live birth; O99.214 Obesity complicating childbirth; E66.9 Obesity, unspecified; O99.62 Diseases of the digestive system complicating childbirth; O99.824 Streptococcus B carrier state complicating childbirth; K21.9 Gastro-esophageal reflux disease without esophagitis; Z3A.38 38 weeks gestation of pregnancy
CPT/HCPCS: 01961; 36415; 51702; 59025; 85014; 85018; 85027; 86592; 86850; 86900; 86901; A9270-GY; J0690; J1100; J1885; J1940; J2270; J2370; J2405; J2590; J3010; J7120